=== PATIENT | female | born 1960 | race Caucasian/White ===

== ENCOUNTER 2019-07-15 17:30 | Emergency (ER) | payer OTHER, SELFPAY ==
[2019-07-15 18:05] VITALS: BP 159/85; PULSE 101; RESP 20; TEMP 36.6; O2SAT 93
--- NOTE | 2019-07-15 18:17 | ED.GENADULT ---
HPI - General Adult General Chief complaint: Allergic Reaction Stated complaint: possible shingles Source: patient and family Mode of arrival: ambulatory Limitations: no limitations History of Present Illness HPI narrative: Patient presents with a burning sensation to her left lateral scalp area with some some redness with no vesicles, it is a burning sensation that she has had that started this morning has a history of shingles. Currently there is no fever chills no visible rash, no chest pain no shortness of breath no nausea vomiting no headaches no blurry vision and no head injuries. Onset (ago): hour(s) Location: head Radiation: non-radiation Severity: mild Quality: burning Pain Consistency: constant Relieving factors: none Exacerbating factors: none Associated symptoms: denies other symptoms Related Data Home Medications Medication Instructions Recorded Confirmed bupropion HCl 150 mg 24 hr tablet, 150 mg PO QAM 03/25/19 07/15/19 extended release fluticasone propionate 50 1 spray NASAL DAILY 03/25/19 07/15/19 mcg/actuation nasal spray,suspension montelukast 10 mg tablet 10 mg PO DAILY 03/25/19 07/15/19 Allergies Allergy/AdvReac Type Severity Reaction Status Date / Time No Known Allergies Allergy Verified 06/29/19 13:51 Review of Systems Review of Systems: All systems reviewed & are unremarkable except as noted in HPI and below PMFSH Past Medical History Medical History Asthma COPD (chronic obstructive pulmonary disease) DIAMOND (generalized anxiety disorder) GERD (gastroesophageal reflux disease) Hyperlipidemia Tobacco dependence Family History Family History Mother Family history of type 2 diabetes mellitus Social History Social History Smoking packs per day: 1 Smoking cigarettes per day: 20.0 Smoking status: Current every day smoker Exam Const: General: no acute distress and alert Orientation/consciousness: patient oriented x3 HENMT: Head: normal to inspection Eyes: Conjunctivae: conjunctivae normal Pupils: Equal, round and reactive pupils present Neck: Neck: normal visual inspection Chest: Chest palpation & inspection: normal inspection of the chest Resp: Effort & Inspection: normal respiratory effort Auscultation: clear to auscultation bilaterally Cardio: Rate: regular rate Rhythm: regular rhythm GI: GI Palp: Yes Soft to palpation Percussion: Yes normal to percussion : General: Yes no CVA tenderness Back/Spine/Pelvis: Back: no CVA tenderness Skin: General skin exam: normal color Rashes: no rashes Neuro: General: patient oriented x3, moves all extremities, no meningeal signs and no focal motor deficits Extrem: General: normal to inspection Psych: Mental Status: mental status grossly normal Course Vital Signs Vital signs: Vital Signs Temperature 36.6 C 07/15/19 18:05 Pulse Rate 101 H 07/15/19 18:05 Respiratory Rate 20 07/15/19 18:05 Blood Pressure 159/85 H 07/15/19 18:05 Pulse Oximetry 93 07/15/19 18:05 Temperature 36.6 C 07/15/19 18:05 Pulse Rate 101 H 07/15/19 18:05 Respiratory Rate 20 07/15/19 18:05 Blood Pressure 159/85 H 07/15/19 18:05 Pulse Oximetry 93 07/15/19 18:05 Medical Decision Making Vital Signs Vital Signs: Vital Signs Temperature 36.6 C 07/15/19 18:05 Pulse Rate 101 H 07/15/19 18:05 Respiratory Rate 20 07/15/19 18:05 Blood Pressure 159/85 H 07/15/19 18:05 Pulse Oximetry 93 07/15/19 18:05 Temperature 36.6 C 07/15/19 18:05 Pulse Rate 101 H 07/15/19 18:05 Respiratory Rate 20 07/15/19 18:05 Blood Pressure 159/85 H 07/15/19 18:05 Pulse Oximetry 93 07/15/19 18:05 Critical Care Time Critical Care Time Critical Care Time: No Discharge Plan Discharge Clinical Impression: Rash and nonsp
[2019-07-15 18:24] VITALS: RESP 18
== END 2019-07-15 18:27 | disposition home or self-care (01) ==
PROVIDERS: Emergency Provider Emergency Medicine; PCP Nurse Practitioner Family
DX: R21 Rash and other nonspecific skin eruption (principal)
CPT/HCPCS: 99283

== ENCOUNTER 2020-05-17 10:49 | Outpatient (CLI) | payer OTHER, SELFPAY ==
--- NOTE | ~2020-05-17 | MM_ITS ---
EXAMINATION: MM screening vel BI w taylor HISTORY: Screening mammogram TECHNIQUE: Craniocaudal and mediolateral oblique 3-D tomosynthesis images were obtained and synthetic 2-D images were generated. CAD analysis was submitted and interpreted. COMPARISON: 10/05/2018 bilateral digital screening mammogram 12/23/2016 bilateral diagnostic digital mammogram and left breast ultrasound 12/20/2015 bilateral digital screening mammogram BREAST PARENCHYMAL COMPOSITION: There are scattered areas of fibroglandular density. FINDINGS: There is no evidence of suspicious mass, calcification, or architectural distortion to sugg est malignancy in either breast. There has been no suspicious interval change. IMPRESSION: 1. No mammographic evidence of malignancy. 2. Recommend routine screening mammography in one year. BI-RADS Category 1: Negative Reviewed, dictated and finalized at location A. [employer]
[2020-05-17 12:40] LABS: Alanine Aminotransferase 28 U/L (14-59); Albumin Level 3.7 g/dL (3.4-5.0); Alkaline Phosphatase 76 U/L (46-116); Anion Gap 9 mmol/L (8-16); Aspartate Amino Transferase 30 U/L (15-37); Bilirubin,Total 0.4 mg/dL (0.00-1.00); Blood Urea Nitrogen 14 mg/dL (7-18); Carbon Dioxide 29 mmol/L (21-32); Chloride 102 mmol/L (98-108); Cholesterol 218 mg/dL (0-200); Estimated Glomerular Filt Rate > 60; Glucose 89 mg/dL (70-99); HDL Direct 42 mg/dL (40-60); LDL Cholesterol Calculated 104 mg/dL (<130); Osmolality Calculated 289 mOsm/kg (285-295); Potassium 4.4 mmol/L (3.5-5.1); Sodium 140 mmol/L (136-145); Triglycerides 360 mg/dL (0-150)
== END 2020-05-17 10:50 | disposition home or self-care (01) ==
LOC: CHSIMG 10:52
PROVIDERS: PCP Nurse Practitioner Family; Visit Provider Nurse Practitioner Family
DX: Z00.00 Encounter for general adult medical examination without abnormal findings (principal); E78.5 Hyperlipidemia, unspecified; Z12.31 Encounter for screening mammogram for malignant neoplasm of breast
CPT/HCPCS: 36415; 77063; 77067; 80053; 80061

== ENCOUNTER 2020-07-03 14:48 | Outpatient (CLI) | payer OTHER, SELFPAY | END 2020-07-03 14:49 | disposition home or self-care (01) | LOC: CHSIMG 14:50 | PROVIDERS: PCP Nurse Practitioner Family; Visit Provider Nurse Practitioner Family | DX: M79.662 Pain in left lower leg (principal) | CPT/HCPCS: 99199 ==

== ENCOUNTER 2020-07-04 08:44 | Outpatient (CLI) | payer OTHER, SELFPAY ==
--- NOTE | ~2020-07-04 | US_ITS ---
EXAMINATION: US venous doppler [facility] EXAM DATE: 07/04/2020 09:08 INDICATION: Pain in left lower leg . TECHNIQUE: Multiple grayscale, color flow and Doppler images of the left lower extremity deep venous system were obtained and reviewed. There is no prior study for comparison. FINDINGS: The left common femoral, femoral and profunda veins demonstrate normal color flow, respirat ory variation, augmentation and compressibility. Compressibility, color flow confirmed within the le ft popliteal, posterior tibial, peroneal, and greater saphenous veins. IMPRESSION: No left lower extremity deep venous thrombosis. Reviewed, dictated and finalized at location A.
== END 2020-07-04 08:45 | disposition home or self-care (01) ==
LOC: CHSIMG 08:45
PROVIDERS: PCP Nurse Practitioner Family; Visit Provider Nurse Practitioner Family
DX: M79.662 Pain in left lower leg (principal)
CPT/HCPCS: 93971

== ENCOUNTER 2020-08-29 20:22 | Emergency (ER) | payer OTHER, SELFPAY ==
--- NOTE | ~2020-08-29 | XR_ITS ---
EXAMINATION: XR chest 2V DATE: 08/29/2020 21:47 INDICATION: Shortness of breath. Wheezing. Cough. TECHNIQUE: Frontal and lateral views of the chest were obtained. COMPARISON: Chest 2 views 04/12/2016 FINDINGS: There is mild scarring at the lung apices. No pleural effusion or pneumothorax. The heart s ize is normal. IMPRESSION: 1. Stable mild scarring at the lung apices. Reviewed, dictated and finalized at location A.
[2020-08-29 20:30] VITALS: BP 145/88; PULSE 109; RESP 22; TEMP 36.8; O2SAT 93
[2020-08-29 20:45] VITALS: PULSE 98; RESP 20; O2SAT 95
[2020-08-29] MEDS: IPRATROPIUM 0.5 MG/ALBUTEROL SULFATE 2.5 MG AMPUL.NEB 3 ML INHALATION (20:49)
[2020-08-29 20:53] VITALS: PULSE 92; RESP 20; O2SAT 98
[2020-08-29] MEDS: methylPREDNISolone SOD SUCC 125 MG VIAL IV PUSH (20:54)
[2020-08-29 21:09] LABS: Basophils Absolute Auto 0.09 K/mm3 (0.00-0.10); Basophils Percent Auto 0.8 % (0.0-1.0); Eosinophils Absolute Auto 0.29 K/mm3 (0.02-0.50); Eosinophils Percent Auto 2.7 % (1.0-6.0); Hematocrit 41.3 % (35.0-49.0); Hemoglobin 13.6 g/dL (12.0-15.0); Immature Granulocyte Absolute 0.11 K/mm3 (0.00-0.00); Lymphocytes Absolute Auto 3.51 K/mm3 (1.10-4.50); Lymphocytes Percent Auto 32.7 % (18.0-42.0); Mean Corpuscular HGB Conc 32.9 g/dL (32.0-36.0); Mean Corpuscular Hemoglobin 30.4 pg (27.0-31.0); Mean Corpuscular Volume 92.4 fL (78.0-102.0); Mean Platelet Volume 10.8 fl (9.2-11.8); Monocytes Absolute Auto 0.98 K/mm3 (0.10-0.90); Monocytes Percent Auto 9.1 % (2.0-11.0); Neutrophils Absolute Auto 5.8 K/mm3 (1.7-7.2); Neutrophils Percent Auto 53.7 % (50.0-70.0); Platelet Count Result 200 K/mm3 (150-420); Red Blood Count 4.47 M/mm3 (4.20-5.40); Red Cell Distribution Width 13.2 % (11.6-14.4); White Blood Count 10.7 K/mm3 (4.8-10.8)
[2020-08-29 21:26] LABS: Alanine Aminotransferase 21 U/L (14-59); Anion Gap 10 mmol/L (8-16); Aspartate Amino Transferase 12 U/L (15-37); Bilirubin,Total 0.3 mg/dL (0.00-1.00); Blood Urea Nitrogen 16 mg/dL (7-18); Calcium 8.4 mg/dL (8.5-10.1); Carbon Dioxide 28 mmol/L (21-32); Chloride 102 mmol/L (98-108); Estimated CRCL calculation 48 ml/min; Estimated Glomerular Filt Rate 60; Glucose 132 mg/dL (70-99); Osmolality Calculated 293 mOsm/kg (285-295); Potassium 3.9 mmol/L (3.5-5.1); Sodium 140 mmol/L (136-145)
[2020-08-29 21:27] LABS: Albumin Level 3.3 g/dL (3.4-5.0); Alkaline Phosphatase 69 U/L (46-116); Total Protein 6.7 g/dL (6.4-8.2)
[2020-08-29 21:28] LABS: SARS-CoV-2 Ag Negative (Negative)
--- NOTE | 2020-08-29 21:38 | ED.URI ---
HPI - URI/Sore Throat General Chief Complaint: Upper Respiratory Infection Stated Complaint: congestion Source: patient Mode of arrival: ambulatory Limitations: no limitations History of Present Illness HPI Narrative: this is a 60-year-old female with herself history of allergic rhinitis presents with some shortness of breath with cough with left lower rib pain with some no fever chills no nausea vomiting no chest pain the patient uses albuterol as needed with history of wheezing secondary to allergic sinusitis. And with a history of COPD/asthma. MD elicited complaint: cough and nasal congestion Onset (ago): day(s) Consistency: intermittent Severity: mild Description of mucous: yellow Exacerbating factors: deep breaths Associated symptoms: nasal congestion and shortness of breath Related Data Home Medications Medication Instructions Recorded Confirmed bupropion HCl 150 mg 24 hr tablet, 150 mg PO QAM 03/25/19 08/29/20 extended release Allergies Allergy/AdvReac Type Severity Reaction Status Date / Time No Known Allergies Allergy Verified 07/03/20 14:34 Review of Systems Review of Systems: All systems reviewed & are unremarkable except as noted in HPI and below PMFSH Past Medical History Medical History (Updated 08/29/20 @ 21:54 by Ross Alexis MD) Asthma COPD (chronic obstructive pulmonary disease) DIAMOND (generalized anxiety disorder) GERD (gastroesophageal reflux disease) Hyperlipidemia Overweight Tobacco dependence Upper respiratory infection Family History Family History Mother Family history of type 2 diabetes mellitus Social History Social History Smoking packs per day: 1 Smoking cigarettes per day: 20.0 Smoking status: Never smoker Tobacco type: cigarettes Alcohol intake: never Substance use: never Substance use type: does not use Exam Const: General: no acute distress and alert Orientation/consciousness: patient oriented x3 HENMT: Head: normal to inspection Eyes: Conjunctivae: conjunctivae normal Pupils: Equal, round and reactive pupils present EOM: EOMs intact bilaterally Direct Ophthalmoscopy: no photophobia Neck: Neck: normal visual inspection, no lymphadenopathy and no meningeal signs Chest: Chest palpation & inspection: normal inspection of the chest Resp: Effort & Inspection: normal respiratory effort Auscultation: wheezes Cardio: Rate: regular rate Rhythm: regular rhythm GI: GI Palp: Yes Soft to palpation Percussion: Yes normal to percussion : General: Yes no CVA tenderness Back/Spine/Pelvis: Back: no CVA tenderness Skin: General skin exam: normal color Rashes: no rashes Neuro: General: patient oriented x3 Extrem: General: normal to inspection Psych: Mental Status: mental status grossly normal Affect: normal affect Attitude: cooperative Course Course Emergency Course: Reassessment of patient improved with some DuoNebs and IV steroids x-ray labs were reviewed with patient. Vital Signs Vital signs: Vital Signs Temperature 36.8 C 08/29/20 20:30 Pulse Rate 109 H 08/29/20 20:30 Respiratory Rate 22 H 08/29/20 20:30 Blood Pressure 145/88 H 08/29/20 20:30 Pulse Oximetry 93 08/29/20 20:30 Temperature 36.8 C 08/29/20 20:30 Pulse Rate 92 08/29/20 20:53 Respiratory Rate 20 08/29/20 20:53 Blood Pressure 145/88 H 08/29/20 20:30 Pulse Oximetry 98 08/29/20 20:53 MDM - URI/Sore Throat Lab Data Result diagrams: 08/29/20 21:02 08/29/20 21:02 Labs: Lab Results 08/29/20 08/29/20 08/29/20 Range/Units 21:02 21:02 21:02 WBC 10.7 (4.8-10.8) K/mm3 RBC 4.47 (4.20-5.40) M/mm3 Hgb 13.6 (12.0-15.0) g/dL Hct 41.3 (35.0-49.0) % MCV 92.4 (78.0-102.0) fL MCH 30.4 (27.0-31.0) pg MCHC 32.9 (32.0-36.0) g/dL RDW 13.2 (11.6-14.4) %
[2020-08-29 21:53] VITALS: BP 118/71; PULSE 104; RESP 20; TEMP 36.8; O2SAT 97
[2020-08-29] MEDS: BENZONATATE 100 MG CAPSULE 200 MG PO (22:03)
[2020-08-29] MEDS: AZITHROMYCIN 250 MG TABLET 500 MG PO (22:03)
== END 2020-08-29 22:04 | disposition home or self-care (01) ==
PROVIDERS: Emergency Provider Emergency Medicine; PCP Nurse Practitioner Family
DX: J06.9 Acute upper respiratory infection, unspecified (principal); Z20.822 Contact with and (suspected) exposure to COVID-19
CPT/HCPCS: 36415; 71046; 80053; 85025; 87426; 94640; 96374; 99283; 99284; A9270; C9803; J2930

== ENCOUNTER 2021-05-15 18:13 | Emergency (ER) | payer OTHER, SELFPAY ==
[2021-05-15 18:13] VITALS: BP 166/106; PULSE 125; RESP 24; TEMP 37.1; O2SAT 89
[2021-05-15 18:20] VITALS: O2SAT 89
[2021-05-15] MEDS: methylPREDNISolone SOD SUCC 125 MG VIAL IV PUSH (18:23)
--- NOTE | 2021-05-15 18:41 | ED.ALLEREA ---
HPI - Allergic Reaction General Chief complaint: Allergic Reaction Stated complaint: allergic reaction Time Seen by Provider: 05/15/21 18:15 Source: patient and RN notes reviewed Mode of arrival: ambulatory Limitations: no limitations History of Present Illness complaint: allergic reaction Onset (ago): hour(s) (3) Exposure: unknown Symptoms: rash and itching Severity: mild Treatment prior to arrival: benadryl Related Data Allergies Allergy/AdvReac Type Severity Reaction Status Date / Time No Known Allergies Allergy Verified 05/24/21 14:25 Review of Systems Review of Systems: All systems reviewed & are unremarkable except as noted in HPI and below PMFSH Past Medical History Medical History (Updated 06/19/21 @ 08:08 by Enrique Anne MD) Allergic reaction Asthma COPD (chronic obstructive pulmonary disease) DIAMOND (generalized anxiety disorder) GERD (gastroesophageal reflux disease) Hyperlipidemia Overweight Tobacco dependence Upper respiratory infection Urticaria Family History Family History Mother Family history of type 2 diabetes mellitus Social History Social History Smoking packs per day: 0.5 Smoking cigarettes per day: 10.0 Years smoked: 30 Smoking pack-years: 15.00 Smoking status: Current every day smoker Tobacco type: cigarettes Alcohol intake: never Substance use: never Substance use type: does not use Exam Const: Nutritional Appearance: well nourished Orientation/consciousness: patient oriented x3 Limitations: no limitations HENMT: Head: normal to inspection Ears: external ears normal and EAC's normal General nose exam: Normal external nose present and Normal nares present Mouth: Yes lip normal and Yes moist mucous membranes Throat: posterior oropharynx normal Eyes: Conjunctivae: conjunctivae normal Pupils: Equal, round and reactive pupils present EOM: EOMs intact bilaterally Neck: Neck: normal visual inspection and no lymphadenopathy Chest: Chest palpation & inspection: normal inspection of the chest Resp: Effort & Inspection: normal respiratory effort Auscultation: clear to auscultation bilaterally Cardio: Rate: regular rate Rhythm: regular rhythm GI: GI Palp: Yes Soft to palpation and No Tenderness to palpation present (GI) Auscultation: normal bowel sounds : General: Yes bladder normal to palpation and Yes no CVA tenderness Back/Spine/Pelvis: Back: no CVA tenderness Skin: Other: mild generalized urticariae. no acute wheezing, tongue swelling or stridor. Neuro: General: patient oriented x3, moves all extremities, no meningeal signs, no focal motor deficits and CN's II-XI intact bilaterally Extrem: General: normal to inspection and no pedal edema Psych: Appearance: grossly normal and well kempt Affect: normal affect Attitude: cooperative Thought content: Yes Normal thought content present Course Course Emergency Course: Pt was stable in the ED. resolving urticariae. Reevaluation(s) Date: 05/15/21 Time: 18:33 Vital Signs Vital signs: Vital Signs Temperature 37.1 C 05/15/21 18:13 Pulse Rate 125 H 05/15/21 18:13 Respiratory Rate 24 H 05/15/21 18:13 Blood Pressure 166/106 H 05/15/21 18:13 Pulse Oximetry 89 L 05/15/21 18:13 Temperature 36.9 C 05/15/21 19:13 Pulse Rate 90 05/15/21 19:13 Respiratory Rate 20 05/15/21 19:13 Blood Pressure 125/65 05/15/21 19:13 Pulse Oximetry 100 05/15/21 19:13 MDM - Allergic Reaction Differential Diagnosis Differential diagnosis: Likely allergic reaction, angioedema, adverse reaction to drug and urticaria Medical Records Attestation: I reviewed the patient's medical records. Critical Care Time Critical Care Time Critical Care Time: No Total Critical Care Time: 0 Discharge Plan Discharge Clinical Impression: Urticaria Allergic reaction Qualifi
[2021-05-15] MEDS: diphenhydrAMINE HCl INJ 50 MG/ML VIAL IM (18:48)
[2021-05-15 18:49] VITALS: O2SAT 94
[2021-05-15] MEDS: SODIUM CHLORIDE 0.9% IV 500 ML 999 ML IV CONT (18:55)
[2021-05-15 19:13] VITALS: BP 125/65; PULSE 90; RESP 20; TEMP 36.9; O2SAT 100
== END 2021-05-15 19:26 | disposition home or self-care (01) ==
PROVIDERS: Emergency Provider Emergency Medicine; PCP Nurse Practitioner Family
DX: L50.9 Urticaria, unspecified (principal); T78.40XA Allergy, unspecified, initial encounter
CPT/HCPCS: 96372; 96374; 99284; J1200; J2930; J7040

== ENCOUNTER 2021-07-29 11:18 | Emergency (ER) | payer OTHER, SELFPAY ==
[2021-07-29 11:25] VITALS: BP 142/87; PULSE 96; RESP 20; TEMP 36.1; O2SAT 95
--- NOTE | 2021-07-29 11:37 | ED.ABDPAIN ---
HPI - Abdominal Pain General Chief Complaint: Urogenital-Female Stated Complaint: frequency, urgency and burning with urination Time Seen by Provider: 07/29/21 11:37 History of Present Illness HPI narrative: 61-year-old female patient is here with complaints of increased urinary frequency and burning and suprapubic pain for the last 3-4 days. Patient states that about a week to 2 ago she had a urinary tract infection and was seen by her primary care provider and started on Macrobid for 1 week. She reports no associated nausea or vomiting and/or any fever or chills. She reports no back pain or flank pain. Patient states that she gets a urinary tract infection at least once every year. Patient also has had cough which is chronic and she is a smoker. Denies any recent COVID exposure. Is vaccinated. Related Data Allergies Allergy/AdvReac Type Severity Reaction Status Date / Time No Known Allergies Allergy Verified 07/29/21 11:32 Review of Systems Review of Systems: All systems reviewed & are unremarkable except as noted in HPI and below Constitutional: Constitutional: Reports no additional constitutional complaints, Denies chills and Denies fever(s) Eyes: Eyes: Reports no additional eye complaints ENT: Reports system reviewed and no additional complaints, except as documented Cardiovascular: Cardiovascular: Reports no additional cardiovascular complaints Respiratory: Respiratory: Reports cough (has chronic cough but worse in the last few days ) and Reports dyspnea (chronic) Genitourinary: Genitourinary: Reports as per HPI, Denies hematuria, Reports nocturia, Reports dysuria, Denies flank pain, Denies urinary incontinence and Denies vaginal discharge Musculoskeletal: Musculoskeletal: Reports no additional musculoskeletal complaints Integumentary/Breasts: Skin/Breast: Reports system reviewed and no additional complaints, except as docu Neurologic: Reports system reviewed and no additional complaints, except as documented Psychiatric: Psychiatric: Reports no additional psychiatric complaints Endocrine: Endocrine: Reports no additional endocrine complaints Hematologic/Lymphatic: Hematologic/Lymphatic: Reports no additional hematologic/lymphatic complaints Allergic/Immunologic: Allergic/Immunologic: Reports no additional allergic/immunologic complaints PMFSH Past Medical History Medical History Allergic reaction Asthma COPD (chronic obstructive pulmonary disease) DIAMOND (generalized anxiety disorder) GERD (gastroesophageal reflux disease) Hyperlipidemia Overweight Tobacco dependence Upper respiratory infection Urticaria Family History Family History Mother Family history of type 2 diabetes mellitus Social History Social History Smoking packs per day: 0.5 Smoking cigarettes per day: 10.0 Years smoked: 30 Smoking pack-years: 15.00 Smoking status: Current every day smoker Tobacco type: cigarettes Alcohol intake: never Substance use: never Substance use type: does not use Exam Narrative: Alert female in no acute distress Stable vital signs. Afebrile. Blood pressure in triage is 142/87. HEENT is acutely unremarkable Breath sounds are audible bilaterally and scattered rhonchi are heard as well. Heart tones are regular. Abdomen is soft and obese. There is minimal suprapubic tenderness. No guarding or rebound or rigidity. Pelvic exam has been deferred at this time. Extremities are atraumatic. Skin is warm and dry and turgor is normal. Neurologic exam is normal. Mood and affect are normal. Course Course Emergency Course: Urinalysis is positive for significant pyuria of 51-60 white blood cells per high-power field and 1+ bacteria. A urine culture has been ordered. The patient will be started on Augmentin in the [place]
[2021-07-29 11:54] LABS: Appearance Urine Clear (Clear); Bilirubin Urine Negative (Negative); Color Urine Light Yellow (Yellow); Glucose Urine UA Negative (Negative); Ketones Urine Negative (Negative); Leukocyte Esterase Ur 3+ (Negative); Nitrate Urine Negative (Negative); Protein Urine Negative (Negative); Urobilinogen Urine 0.2 mg/dL (0.2-1.0)
[2021-07-29 11:56] LABS: Add Urine Microscopic? YES; Bacteria Urine 1+ /hpf; Blood Urine Trace-lysed (Negative); Squamous Epithelial Cell Urine None seen /hpf (Few); WBC Urine 51-75 /hpf (0-3)
[2021-07-29] MEDS: PHENAZOPYRIDINE HCL 100 MG TABLET 200 MG PO (12:03)
[2021-07-29 12:25] VITALS: BP 130/78; PULSE 84; RESP 20; TEMP 36.8; O2SAT 94
== END 2021-07-29 12:27 | disposition home or self-care (01) ==
PROVIDERS: Emergency Provider Emergency Medicine; PCP Nurse Practitioner Family
DX: N39.0 Urinary tract infection, site not specified (principal); J44.9 Chronic obstructive pulmonary disease, unspecified; K21.9 Gastro-esophageal reflux disease without esophagitis; F41.1 Generalized anxiety disorder; E78.5 Hyperlipidemia, unspecified; F17.210 Nicotine dependence, cigarettes, uncomplicated
CPT/HCPCS: 81001; 87077; 87086; 87088; 87186; 99283; A9270

== ENCOUNTER 2021-08-01 11:21 | Outpatient (CLI) | payer OTHER, SELFPAY ==
[2021-08-01 11:45] LABS: Basophils Percent Auto 1.1 % (0.0-1.0); Eosinophils Percent Auto 4.5 % (1.0-6.0); Hematocrit 49.2 % (35.0-49.0); Hemoglobin 15.7 g/dL (12.0-15.0); Immature Granulocyte Absolute 0.15 K/mm3 (0.00-0.00); Immature Granulocyte Percent A 1.7 % (0.0-0.0); Lymphocytes Absolute Auto 2.93 K/mm3 (1.10-4.50); Lymphocytes Percent Auto 32.8 % (18.0-42.0); Mean Corpuscular HGB Conc 31.9 g/dL (32.0-36.0); Mean Corpuscular Hemoglobin 29.9 pg (27.0-31.0); Mean Corpuscular Volume 93.7 fL (78.0-102.0); Mean Platelet Volume 10.3 fl (9.2-11.8); Monocytes Absolute Auto 0.88 K/mm3 (0.10-0.90); Monocytes Percent Auto 9.9 % (2.0-11.0); Neutrophils Absolute Auto 4.5 K/mm3 (1.7-7.2); Platelet Count Result 230 K/mm3 (150-420); Red Blood Count 5.25 M/mm3 (4.20-5.40); Red Cell Distribution Width 12.6 % (11.6-14.4); White Blood Count 8.9 K/mm3 (4.8-10.8)
[2021-08-01 11:57] LABS: Add Urine Microscopic? NO; Appearance Urine Clear (Clear); Bilirubin Urine Negative (Negative); Blood Urine Negative (Negative); Color Urine Light Yellow (Yellow); Glucose Urine UA Negative (Negative); Ketones Urine Negative (Negative); Leukocyte Esterase Ur Negative (Negative); Nitrate Urine Negative (Negative); Protein Urine Negative (Negative); Specific Grav Ur <= 1.005 (1.010-1.020); Urobilinogen Urine 0.2 mg/dL (0.2-1.0)
[2021-08-01 12:23] LABS: Alanine Aminotransferase 27 U/L (14-59); Albumin Level 3.8 g/dL (3.4-5.0); Alkaline Phosphatase 70 U/L (46-116); Anion Gap 5 mmol/L (8-16); Aspartate Amino Transferase 20 U/L (15-37); Bilirubin,Total 0.4 mg/dL (0.00-1.00); Blood Urea Nitrogen 13 mg/dL (7-18); Calcium 9.4 mg/dL (8.5-10.1); Carbon Dioxide 33 mmol/L (21-32); Chloride 101 mmol/L (98-108); Cholesterol 255 mg/dL (0-200); Estimated Glomerular Filt Rate > 60; Glucose 87 mg/dL (70-99); HDL Direct 43 mg/dL (40-60); LDL Cholesterol Calculated 156 mg/dL (<130); Osmolality Calculated 287 mOsm/kg (285-295); Potassium 4.5 mmol/L (3.5-5.1); Sodium 139 mmol/L (136-145); Total Protein 7.3 g/dL (6.4-8.2); Triglycerides 280 mg/dL (0-150)
== END 2021-08-01 11:22 | disposition home or self-care (01) ==
LOC: CHSLAB 11:23
PROVIDERS: PCP Nurse Practitioner Family; Visit Provider Nurse Practitioner Family
DX: E78.5 Hyperlipidemia, unspecified (principal); R30.0 Dysuria
CPT/HCPCS: 36415; 80053; 80061; 81003; 85025

== ENCOUNTER 2021-10-24 16:36 | Emergency (ER) | payer OTHER, SELFPAY ==
[2021-10-24 16:40] VITALS: BP 154/84; PULSE 92; RESP 16; TEMP 36.2; O2SAT 95
[2021-10-24] MEDS: ACETAMINOPHEN 325 MG TABLET 650 MG PO (17:56)
[2021-10-24] MEDS: FLUORESCEIN SOD 1 MG/STRIP LEFT EYE (18:26)
[2021-10-24] MEDS: ERYTHROMYCIN OPHTH OINTMENT 3.5 GM TUBE 1 APPLIC LEFT EYE (18:26)
[2021-10-24] MEDS: TETRACAINE HCL 0.5% OPHTH SOLN 4 ML BTL 1 DROP LEFT EYE (18:27)
--- NOTE | 2021-10-24 18:28 | ED.EYEPROB ---
HPI - Eye Problem General Chief complaint: Eye Problems Stated complaint: left eye issue Time Seen by Provider: 10/24/21 16:40 Source: patient and RN notes reviewed Mode of arrival: ambulatory Limitations: no limitations History of Present Illness chief complaint: eye redness (painless bleeding around the white of the eye. vision was normal. no trauma.) Onset (ago): hour(s) (6) Onset description: gradual Duration: constant Location: left eye Eye Symptoms: redness and foreign body sensation Place: home Mechanism: none Severity: mild Severity scale (1-10): 2 If Pain, Quality: aching Associated symptoms: none Treatments Prior to Arrival: none Related Data Allergies Allergy/AdvReac Type Severity Reaction Status Date / Time No Known Allergies Allergy Verified 10/24/21 17:15 Review of Systems Review of Systems: All systems reviewed & are unremarkable except as noted in HPI and below Constitutional: Constitutional: Reports no additional constitutional complaints Eyes: Eyes: Reports no additional eye complaints Comments: left eye scleral redness ENT: Reports system reviewed and no additional complaints, except as documented Cardiovascular: Cardiovascular: Reports no additional cardiovascular complaints Respiratory: Respiratory: Reports no additional respiratory complaints Gastrointestinal: Gastrointestinal: Reports no additional gastrointestinal complaints Genitourinary: Genitourinary: Reports no additional female genitourinary complaints Musculoskeletal: Musculoskeletal: Reports no additional musculoskeletal complaints Integumentary/Breasts: Skin/Breast: Reports system reviewed and no additional complaints, except as docu Neurologic: Reports system reviewed and no additional complaints, except as documented Psychiatric: Psychiatric: Reports no additional psychiatric complaints Endocrine: Endocrine: Reports no additional endocrine complaints Hematologic/Lymphatic: Hematologic/Lymphatic: Reports no additional hematologic/lymphatic complaints Allergic/Immunologic: Allergic/Immunologic: Reports no additional allergic/immunologic complaints [facility] Past Medical History Medical History Allergic reaction Asthma COPD (chronic obstructive pulmonary disease) DIAMOND (generalized anxiety disorder) GERD (gastroesophageal reflux disease) Hyperlipidemia Overweight KELSIE (subconjunctival hemorrhage) Tobacco dependence Upper respiratory infection Urticaria Family History Family History Mother Family history of type 2 diabetes mellitus Social History Social History Smoking packs per day: 0.5 Smoking cigarettes per day: 10.0 Years smoked: 30 Smoking pack-years: 15.00 Smoking status: Current every day smoker Tobacco type: cigarettes Alcohol intake: never Substance use: never Substance use type: does not use Exam Const: General: healthy appearing and no acute distress Nutritional Appearance: well nourished Orientation/consciousness: patient oriented x3 Limitations: no limitations HENMT: Head: normal to inspection Ears: external ears normal, TM's normal bilaterally and EAC's normal General nose exam: Normal external nose present and Normal nares present Face and sinus: normal facial exam and sinuses nontender Mouth: Yes Normal oral and palatal mucosa present and Yes moist mucous membranes Teeth and gingiva: dentition normal Throat: posterior oropharynx normal Eyes: Conjunctivae: conjunctivae normal and conjunctival abnormality (mild hemorrhage) left Pupils: Equal, round and reactive pupils present EOM: EOMs intact bilaterally Neck: Neck: normal visual inspection, no lymphadenopathy and no meningeal signs Chest: Chest palpation & inspection: normal inspection of the chest Resp: Effort & Inspection: normal respiratory effor
[2021-10-24 18:39] VITALS: BP 143/85; PULSE 74; RESP 16; O2SAT 95
== END 2021-10-24 18:35 | disposition home or self-care (01) ==
PROVIDERS: Emergency Provider Emergency Medicine; PCP Nurse Practitioner Family
DX: H11.32 Conjunctival hemorrhage, left eye (principal)
CPT/HCPCS: 99283; A9270

== ENCOUNTER 2021-12-12 12:13 | Outpatient (CLI) | payer OTHER, SELFPAY ==
[2021-12-12 12:28] LABS: Hematocrit 44.3 % (35.0-49.0); Hemoglobin 14.3 g/dL (12.0-15.0); Mean Corpuscular HGB Conc 32.3 g/dL (32.0-36.0); Mean Corpuscular Hemoglobin 29.5 pg (27.0-31.0); Mean Corpuscular Volume 91.5 fL (78.0-102.0); Mean Platelet Volume 10.6 fl (9.2-11.8); Platelet Count Result 196 K/mm3 (150-420); Red Blood Count 4.84 M/mm3 (4.20-5.40); Red Cell Distribution Width 12.4 % (11.6-14.4); White Blood Count 7.9 K/mm3 (4.8-10.8)
[2021-12-12 13:11] LABS: Anion Gap 9 mmol/L (8-16); Bilirubin,Total 0.3 mg/dL (0.00-1.00); Blood Urea Nitrogen 15 mg/dL (7-18); Calcium 9.2 mg/dL (8.5-10.1); Carbon Dioxide 28 mmol/L (21-32); Chloride 104 mmol/L (98-108); Estimated Glomerular Filt Rate > 60; Glucose 102 mg/dL (70-99); Osmolality Calculated 292 mOsm/kg (285-295); Sodium 141 mmol/L (136-145); Thyroid Stimulating Hormone Reflex 1.41 u/IU/mL (0.36-3.74)
[2021-12-12 13:12] LABS: Alanine Aminotransferase 24 U/L (14-59); Albumin Level 3.8 g/dL (3.4-5.0); Alkaline Phosphatase 70 U/L (46-116); Aspartate Amino Transferase 17 U/L (15-37); CRP 1.4 mg/dL (0.0-0.9); Total Protein 7.1 g/dL (6.4-8.2)
[2021-12-12 13:55] LABS: Vitamin B12 530 pg/mL (193-986)
[2021-12-12 14:23] LABS: Erythrocyte Sedimentation Rate 14 mm/hr (0-20)
[2021-12-16 10:12] LABS: ANA Cascade Screen Negative (Negative)
== END 2021-12-12 12:14 | disposition home or self-care (01) ==
LOC: CHSLAB 12:15
PROVIDERS: PCP Family Medicine; Visit Provider Family Medicine
DX: I73.9 Peripheral vascular disease, unspecified (principal); E11.9 Type 2 diabetes mellitus without complications; E53.8 Deficiency of other specified B group vitamins
CPT/HCPCS: 36415; 80053; 82607; 82746; 84443; 85027; 85652; 86038; 86140

== ENCOUNTER 2021-12-19 13:43 | Outpatient (CLI) | payer OTHER, SELFPAY ==
--- NOTE | ~2021-12-19 | US_ITS ---
EXAMINATION: US arterial ankle brachial ind DATE: 12/19/2021 14:33 INDICATION: Peripheral vascular disease TECHNIQUE: Segmental pressures and plethysmographic and Doppler waveforms of the brachial and lower e xtremity arteries were obtained. COMPARISON: None. FINDINGS: Right and left brachial artery pressures of 107 mm Hg and 115 mm Hg, respectively, are concordant (no rmal difference <= 30 mmHg). The right ankle-brachial index (DARYA) is 1.30 (normal >= 0.9-1.0). The right great toe-brachial index (TBI) is 0.89 (normal >= 0.65). Arterial Doppler waveforms are triphasic with brisk systolic upstrok es throughout the arteries of the right lower limb. The left DARYA is 1.28. The left TBI is 0.82. Arterial Doppler waveforms are triphasic with brisk systo lic upstrokes throughout the arteries of the left lower limb. IMPRESSION: 1. No significant arterial occlusive disease to either lower limb with normal bilateral ABIs and TBIs Reviewed, dictated and finalized at location B. IMPRESSION: 1. No significant arterial occlusive disease to either lower limb with normal b ilateral ABIs and TBIs
== END 2021-12-19 13:44 | disposition home or self-care (01) ==
LOC: CHSIMG 13:44
PROVIDERS: PCP Family Medicine; Visit Provider Family Medicine
DX: I73.9 Peripheral vascular disease, unspecified (principal)
CPT/HCPCS: 93922

== ENCOUNTER 2022-02-01 18:10 | Emergency (ER) | payer OTHER, SELFPAY ==
--- NOTE | ~2022-02-01 | CT_ITS ---
EXAMINATION: CTA chest PE protocol DATE: 02/01/2022 20:32 INDICATION: Shortness of breath. Elevated d-dimer. TECHNIQUE: Computed tomography (CT) pulmonary angiogram of the chest was performed with 100 mL Omnipa que-350 intravenous contrast. Additional 3D reconstructions utilizing coronal maximum intensity proje ction (MIP) were performed. Automated exposure control and iterative reconstruction technique were em ployed. The dose-length product was 429.25 mGy-cm. COMPARISON: 05/01/2017 FINDINGS: Good suboptimal contrast opacification of the pulmonary arteries. There is mild streak artifact from dense contrast in the superior vena cava and right atrium. No significant respiratory motion artifact yielding diagnostic quality study which demonstrates no pulmonary embolism. Mild emphysema with seam stay stitcher phoebe bronchial wall thickening throughout both lungs.. There are scattered patchy groundglass opacitie s in the right upper and lower lobes single small region in the intersegment the left upper lobe. The re is also a small region of more dense consolidation at the anterobasilar segment of the right lower lobe. Findings are consistent with multifocal pneumonia. No pulmonary edema, pleural effusion or pne umothorax. Heart size is normal. No pericardial effusion. Thoracic aorta is normal in caliber with no dissection. Calcified right lower lobe nodule along with calcified right hilar and mediastinal lymph nodes and a few small splenic calcifications, all consistent with old granulomatous disease. No path ologically enlarged thoracic lymphadenopathy. Bones are unremarkable. IMPRESSION: 1. No pulmonary embolism. 2. Multifocal pneumonia in the right upper and lower lobes with single small focus in the left upper lobe. 3. Emphysema with chronic bronchitis. Reviewed, dictated and finalized at location A. TER ADVOCATE IMPRESSION: 1. No pulmonary embolism. 2. Multifocal pneumonia in the right upper and lower lobes with single small fo cus in the left upper lobe. 3. Emphysema with chronic bronchitis.
--- NOTE | ~2022-02-01 | XR_ITS ---
EXAMINATION: XR chest 2V DATE: 02/01/2022 19:12 INDICATION: COPD presenting with 5 days of congestion TECHNIQUE: frontal and lateral views of the chest were obtained. COMPARISON: Chest radiograph dated 08/29/2020 FINDINGS: Mild biapical pleural-parenchymal scarring. Again seen is chronic perihilar and infrahilar unchanged bronchial wall thickening. Mild airspace opacity right lower lung zone which could represent atelecta sis or pneumonia. No pleural effusion or pneumothorax. Heart size is normal with bilateral paracardia l fat pads. IMPRESSION: 1. New mild airspace opacities in the right lower lung zone which could represent atelectasis or pneu monia. 2. Unchanged bronchial wall thickening which could be due to chronic bronchitis or reactive airway di sease/asthma. Reviewed, dictated and finalized at location A. OGICAL INSPECTOR IMPRESSION: 1. New mild airspace opacities in the right lower lung zone which could represe nt atelectasis or pneumonia. 2. Unchanged bronchial wall thickening which could be due to chronic bronchitis or reactive airway disease/asthma.
--- NOTE | 2022-02-01 18:32 | ECG_ITS ---
Measurements Intervals [place] Rate: 127 P: 64 NM: 150 QRS: 73 QRSD: 76 T: 63 QT: 276 QTc: 403 Interpretive Statements SINUS TACHYCARDIA BASELINE ARTIFACT- I, II, III, AVR, AVL, AVF, V1-V6 ABNORMAL ECG NO PREVIOUS ECG AVAILABLE FOR COMPARISON Electronically Signed On 02-01-2022 22:31:25 HAND WASHER by Piyush Chavez D.O.
--- NOTE | 2022-02-01 18:34 | ED.SOB ---
HPI - SOB/Dyspnea General Chief Complaint: Shortness of Breath/Dyspnea Stated Complaint: sinus infection Time Seen by Provider: 02/01/22 18:32 History of Present Illness HPI Narrative: patient is 61-year-old white female complains of sinus drainage and shortness of breath. Patient has a history of COPD hyperlipidemia and complains of cough sneezing and shortness of breath after being exposed to 3 cats at her family member's house 1 week ago got worse 2 days later which was Friday 5 days ago and went to the urgent care and got doxycycline for that as well as earache. Her ear aches improved but she still coughing up gutierrez sputum has been short of breath the last 3 days she said tonight she ran out of her albuterol nebulizer treatment she still has meter dose inhaler of albuterol. Denies any chest pain nausea vomiting diarrhea constipation blood in her stool or bleeding or bruising. She has had a rash on her hands it itches. She has a history of eczema. Past medical history: As above denies any history of heart kidney liver intestinal diseases cancer thyroid diabetes or hypertension. Past surgical history: None Related Data Allergies Allergy/AdvReac Type Severity Reaction Status Date / Time No Known Allergies Allergy Verified 12/24/21 13:33 Review of Systems Review of Systems: All systems reviewed & are unremarkable except as noted in HPI and below Constitutional: Constitutional: Reports no additional constitutional complaints Eyes: Eyes: Reports no additional eye complaints ENT: Reports system reviewed and no additional complaints, except as documented Cardiovascular: Cardiovascular: Reports no additional cardiovascular complaints and Denies chest pain Respiratory: Respiratory: Reports as per HPI, Reports no additional respiratory complaints, Reports chest congestion, Reports cough, Reports dyspnea and Reports wheezing Gastrointestinal: Gastrointestinal: Reports as per HPI and Reports no additional gastrointestinal complaints Genitourinary: Genitourinary: Reports no additional female genitourinary complaints Musculoskeletal: Musculoskeletal: Reports no additional musculoskeletal complaints Integumentary/Breasts: Skin/Breast: Reports system reviewed and no additional complaints, except as docu, Reports as per HPI, Reports pruritus and Reports rash Neurologic: Reports system reviewed and no additional complaints, except as documented Psychiatric: Psychiatric: Reports no additional psychiatric complaints PMFSH Past Medical History Medical History Allergic reaction Asthma COPD (chronic obstructive pulmonary disease) DIAMOND (generalized anxiety disorder) GERD (gastroesophageal reflux disease) Hyperlipidemia Overweight KELSIE (subconjunctival hemorrhage) Tobacco dependence Upper respiratory infection Urticaria Family History Family History Mother Family history of type 2 diabetes mellitus Social History Social History Smoking status: Former smoker Tobacco type: cigarettes Smoking end date: 09/22/21 Alcohol intake: never Substance use: never Substance use type: does not use Exam Narrative: obese white female no apparent distress head normocephalic atraumatic eyes conjunctiva pink sclera nonicteric oropharynx clear with moist mucous membranes. Neck is supple without lymphadenopathy. Lungs show fair air exchange with slight wheezing no rhonchi or rales. Heart is regular rate and rhythm without murmurs gallops or rubs. Abdomen is obese positive bowel sounds soft nontender, no hepatosplenomegaly or masses. extremities no cyanosis clubbing or edema . Neurological motor and sensory are grossly intact patient is alert and oriented x4 Course Course Emergency Course: EKG shows sinus tachycardia at a rate of [address] T wave van
[2022-02-01 18:35] VITALS: BP 160/99; PULSE 136; RESP 22; TEMP 37.6; O2SAT 89
[2022-02-01] MEDS: predniSONE 20 MG TABLET 60 MG PO (18:42)
[2022-02-01 18:48] LABS: Basophils Absolute Auto 0.04 K/mm3 (0.00-0.10); Basophils Percent Auto 0.3 % (0.0-1.0); Eosinophils Absolute Auto 0.06 K/mm3 (0.02-0.50); Eosinophils Percent Auto 0.5 % (1.0-6.0); Hematocrit 40.7 % (35.0-49.0); Hemoglobin 13.2 g/dL (12.0-15.0); Immature Granulocyte Absolute 0.19 K/mm3 (0.00-0.00); Immature Granulocyte Percent A 1.5 % (0.0-0.0); Lymphocytes Absolute Auto 1.44 K/mm3 (1.10-4.50); Lymphocytes Percent Auto 11.5 % (18.0-42.0); Mean Corpuscular HGB Conc 32.4 g/dL (32.0-36.0); Mean Corpuscular Volume 92.5 fL (78.0-102.0); Monocytes Absolute Auto 1.05 K/mm3 (0.10-0.90); Monocytes Percent Auto 8.4 % (2.0-11.0); Neutrophils Absolute Auto 9.8 K/mm3 (1.7-7.2); Neutrophils Percent Auto 77.8 % (50.0-70.0); Platelet Count Result 207 K/mm3 (150-420); Red Cell Distribution Width 12.9 % (11.6-14.4); White Blood Count 12.5 K/mm3 (4.8-10.8)
[2022-02-01 19:00] VITALS: PULSE 130; RESP 20; O2SAT 90; O2SAT 96
[2022-02-01] MEDS: IPRATROPIUM 0.5 MG/ALBUTEROL SULFATE 2.5 MG AMPUL.NEB 3 ML INHALATION (19:00)
[2022-02-01 19:03] LABS: Partial Thromboplastin Time 27.4 SEC (23.90-30.70); Prothrombin Time 11.4 Seconds (9.50-12.10)
[2022-02-01 19:10] LABS: Alanine Aminotransferase 21 U/L (14-59); Albumin Level 3.1 g/dL (3.4-5.0); Alkaline Phosphatase 69 U/L (46-116); Anion Gap 7 mmol/L (8-16); Aspartate Amino Transferase 16 U/L (15-37); Bilirubin,Total 0.4 mg/dL (0.00-1.00); Blood Urea Nitrogen 14 mg/dL (7-18); Calcium 8.8 mg/dL (8.5-10.1); Carbon Dioxide 30 mmol/L (21-32); Chloride 102 mmol/L (98-108); Estimated Glomerular Filt Rate > 60; Glucose 167 mg/dL (70-99); Influenza A QL RT-PCR Positive (Negative); Influenza B QL RT-PCR Negative (Negative); Magnesium 2.1 mg/dL (1.8-2.4); NT Pro B Type Natriuretic Pept 73 pg/mL (0-125); Osmolality Calculated 292 mOsm/kg (285-295); Potassium 3.6 mmol/L (3.5-5.1); RSV RNA, RT-PCR Negative (Negative); SARS-CoV-2 RNA PCR Negative (Negative); Sodium 139 mmol/L (136-145); Total Protein 7.6 g/dL (6.4-8.2); Troponin I 6.1 ng/L (0.00-60.4)
[2022-02-01 19:12] LABS: D Dimer 0.72 mg/L (0.19-0.50)
[2022-02-01 19:18] VITALS: PULSE 138; RESP 20; O2SAT 97
[2022-02-01] MEDS: levoFLOXacin TAB 500 MG, levoFLOXacin TAB 250 MG 750 MG PO (21:37)
[2022-02-01 21:42] VITALS: BP 136/81; PULSE 110; RESP 20; TEMP 36.6; O2SAT 94
--- NOTE | 2022-02-08 13:54 | PC.NURSE ---
final blood cultures x2 no growth after 5 days
== END 2022-02-01 21:55 | disposition home or self-care (01) ==
PROVIDERS: Emergency Provider Emergency Medicine; PCP Nurse Practitioner Family
DX: J11.1 Influenza due to unidentified influenza virus with other respiratory manifestations (principal); J44.1 Chronic obstructive pulmonary disease with (acute) exacerbation; Z20.822 Contact with and (suspected) exposure to COVID-19; Z87.891 Personal history of nicotine dependence
CPT/HCPCS: 36415; 71046; 71275; 80053; 83735; 83880; 84484; 85025; 85380; 85610; 85730; 87040; 87637; 93005; 94640; 99284; A9270; J7512; Q9967

== ENCOUNTER 2022-09-13 11:02 | Emergency (ER) | payer OTHER, SELFPAY ==
[2022-09-13 11:02] VITALS: BP 155/92; PULSE 112; RESP 20; TEMP 36.8; O2SAT 88
--- NOTE | 2022-09-13 11:05 | ED.BACK ---
HPI - Back Pain/Injury General Chief Complaint: Back Pain/Injury Stated Complaint: L flank pain Time Seen by Provider: 09/13/22 11:04 Source: patient and RN notes reviewed Mode of arrival: ambulatory Limitations: no limitations History of Present Illness MD elicited complaint: back pain Onset (ago): day(s) (1) Timing: intermittent Severity: moderate Similar Symptoms Previously: No Quality: dull and aching Location: left flank Radiation: none Exacerbating factors: movement Relieving factors: none Associated symptoms: denies other symptoms Work related injury: No Related Data Allergies Allergy/AdvReac Type Severity Reaction Status Date / Time No Known Allergies Allergy Verified 09/13/22 12:50 Review of Systems Review of Systems: All systems reviewed & are unremarkable except as noted in HPI and below PMFSH Past Medical History Medical History Allergic reaction Asthma COPD (chronic obstructive pulmonary disease) DIAMOND (generalized anxiety disorder) GERD (gastroesophageal reflux disease) Hyperlipidemia Overweight KELSIE (subconjunctival hemorrhage) Tobacco dependence Upper respiratory infection Urticaria Family History Family History Mother Family history of type 2 diabetes mellitus Social History Social History Smoking status: Current some day smoker Tobacco type: cigarettes Smoking end date: 09/22/21 Alcohol intake: never Substance use: never Substance use type: does not use Lack of Transportation: YES Lack of Food: Never True Current Housing: I Have Housing Concerned About Future Housing: No Difficulty Paying Gas/Electric Bills: YES Difficulty Paying for Meds: No Currently Unemployed: No Education: Grade School Difficulty w/ Childcare or Family Care: No Exam Const: General: healthy appearing, no acute distress and alert Nutritional Appearance: well nourished Orientation/consciousness: patient oriented x3 Limitations: no limitations HENMT: Head: normal to inspection Ears: external ears normal Face/Nose/Sinus: Normal external nose present Face and sinus: normal facial exam Mouth: Yes moist mucous membranes Eyes: Conjunctivae: conjunctivae normal Pupils: Equal, round and reactive pupils present EOM: EOMs intact bilaterally Neck: Neck: normal visual inspection Resp: Effort & Inspection: normal respiratory effort Auscultation: clear to auscultation bilaterally Cardio: Rate: regular rate Rhythm: regular rhythm GI: GI Palp: Yes Soft to palpation and No Tenderness to palpation present (GI) Auscultation: normal bowel sounds Back/Spine/Pelvis: Back: CVA tenderness ( moderate on the left) Cervical Spine: cervical ROM normal Thoracic/Lumbar Spine: thoraco-lumbar ROM normal Skin: General skin exam: normal color Rashes: no rashes Neuro: General: patient oriented x3, moves all extremities, no focal motor deficits and CN's II-XI intact bilaterally Speech: normal speech Gait exam (Neuro): Normal gait present Extrem: General: normal to inspection and no clubbing, cyanosis or edema Psych: Mental Status: mental status grossly normal Affect: normal affect Attitude: cooperative Course Vital Signs Vital signs: Vital Signs Temperature 36.8 C 09/13/22 11:02 Pulse Rate 112 H 09/13/22 11:02 Respiratory Rate 20 09/13/22 11:02 Blood Pressure 155/92 H 09/13/22 11:02 Pulse Oximetry 88 L 09/13/22 11:02 Oxygen Delivery Room Air 09/13/22 11:02 Temperature 36.7 C 09/13/22 12:47 Pulse Rate 84 09/13/22 12:47 Respiratory Rate 20 09/13/22 12:47 Blood Pressure 136/65 09/13/22 12:47 Pulse Oximetry 91 09/13/22 12:47 Oxygen Delivery Room Air 09/13/22 12:47 MDM - Back Pain/Injury Differential Diagnosis Differential diagnosis: Likely lumbar radiculopathy, sciatica, strain of lumbar r
[2022-09-13] MEDS: KETOROLAC 30 MG/ML VIAL (*BKC) IM (11:28)
[2022-09-13 11:42] LABS: Basophils Absolute Auto 0.06 K/mm3 (0.00-0.10); Basophils Percent Auto 0.9 % (0.0-1.0); Eosinophils Percent Auto 4.3 % (1.0-6.0); Hematocrit 45.9 % (35.0-49.0); Hemoglobin 14.9 g/dL (12.0-15.0); Immature Granulocyte Absolute 0.06 K/mm3 (0.00-0.00); Immature Granulocyte Percent A 0.9 % (0.0-0.0); Lymphocytes Absolute Auto 2.17 K/mm3 (1.10-4.50); Mean Corpuscular HGB Conc 32.5 g/dL (32.0-36.0); Mean Corpuscular Volume 92.4 fL (78.0-102.0); Mean Platelet Volume 10.7 fl (9.2-11.8); Monocytes Absolute Auto 0.76 K/mm3 (0.10-0.90); Monocytes Percent Auto 10.9 % (2.0-11.0); Neutrophils Absolute Auto 3.6 K/mm3 (1.7-7.2); Platelet Count Result 171 K/mm3 (150-420); Red Blood Count 4.97 M/mm3 (4.20-5.40); Red Cell Distribution Width 12.8 % (11.6-14.4)
[2022-09-13 11:43] LABS: Appearance Urine Clear (Clear); Bilirubin Urine Negative (Negative); Blood Urine Negative (Negative); Color Urine Light Yellow (Yellow); Glucose Urine UA Trace (Negative); Ketones Urine Negative (Negative); Leukocyte Esterase Ur Negative LEU/UL (Negative); Nitrate Urine Negative (Negative); Protein Urine Negative (Negative); Urobilinogen Urine 0.2 mg/dL (0.2-1.0)
[2022-09-13 11:48] LABS: Add Urine Microscopic? YES; Bacteria Urine Trace /hpf; RBC Urine None seen /hpf (0-2); Squamous Epithelial Cell Urine Moderate /hpf (Few); WBC Urine 0-3 /hpf (0-3)
[2022-09-13 11:57] LABS: Alanine Aminotransferase 32 U/L (14-59); Albumin Level 3.6 g/dL (3.4-5.0); Alkaline Phosphatase 66 U/L (46-116); Anion Gap 7 mmol/L (8-16); Aspartate Amino Transferase 17 U/L (15-37); Bilirubin,Total 0.4 mg/dL (0.00-1.00); Blood Urea Nitrogen 14 mg/dL (7-18); CRP 1.1 mg/dL (0.0-0.9); Calcium 8.9 mg/dL (8.5-10.1); Carbon Dioxide 30 mmol/L (21-32); Chloride 105 mmol/L (98-108); Estimated Glomerular Filt Rate > 60; Glucose 87 mg/dL (70-99); Osmolality Calculated 293 mOsm/kg (285-295); Potassium 3.9 mmol/L (3.5-5.1); Sodium 142 mmol/L (136-145); Total Protein 7.2 g/dL (6.4-8.2)
[2022-09-13 12:47] VITALS: BP 136/65; PULSE 84; RESP 20; TEMP 36.7; O2SAT 91
== END 2022-09-13 12:50 | disposition home or self-care (01) ==
PROVIDERS: Emergency Provider Emergency Medicine; PCP Nurse Practitioner Family
DX: S39.012A Strain of muscle, fascia and tendon of lower back, initial encounter (principal); J44.9 Chronic obstructive pulmonary disease, unspecified; E78.5 Hyperlipidemia, unspecified; F17.210 Nicotine dependence, cigarettes, uncomplicated; X58.XXXA Exposure to other specified factors, initial encounter
CPT/HCPCS: 36415; 80053; 81001; 85025; 86140; 96372; 99283; J1885

== ENCOUNTER 2022-09-24 12:22 | Outpatient (CLI) | payer OTHER, SELFPAY ==
--- NOTE | ~2022-09-24 | MM_ITS ---
EXAMINATION: MM screening vel BI w taylor HISTORY: Screening TECHNIQUE: Craniocaudal and mediolateral oblique 3-D tomosynthesis images were obtained and synthetic 2-D images were generated. CAD analysis was submitted and interpreted. COMPARISON: Comparison to multiple prior studies sequentially, with oldest reviewed study dated 12/08. BREAST PARENCHYMAL COMPOSITION: There are scattered areas of fibroglandular density. FINDINGS: Stable small benign-appearing mass upper inner quadrant of the left breast, likely benign l ymph node. There is no evidence of suspicious mass, calcification, or architectural distortion to sug gest malignancy in either breast. There has been no suspicious interval change. IMPRESSION: 1. No mammographic evidence of malignancy. 2. Recommend routine screening mammography in one year. BI-RADS Category 2: Benign finding(s). Reviewed, dictated and finalized at location A.
== END 2022-09-24 12:23 | disposition home or self-care (01) ==
LOC: CHSIMG 12:23
PROVIDERS: PCP Nurse Practitioner Family; Visit Provider Nurse Practitioner Family
DX: Z12.31 Encounter for screening mammogram for malignant neoplasm of breast (principal)
CPT/HCPCS: 77063; 77067

== ENCOUNTER 2022-11-14 01:32 | Day surgery (SDC) | payer OTHER, SELFPAY ==
[2022-10-31 10:57] VITALS: BMI 33.3
[2022-11-14 06:56] VITALS: BP 134/81; PULSE 106; RESP 18; TEMP 35.9; O2SAT 91
[2022-11-14] MEDS: LACTATED RINGERS 1,000 ML 150 ML IV CONT (07:03)
--- NOTE | 2022-11-14 07:29 | SUR.PREOP ---
DR DAWSON NOTIFIED PT ATE TWO PIECES OF TOAST YESTERDAY AT 10AM, PT STATES HER STOOLS ARE CLEAR, DR DAWSON SEEING PT, NO NEW ORDERS RECEIVED. DR WINCHESTER AND PEÑA Avelar NOTIFIED OF PT'S COPD, PT'S OXYGEN SATS 91% ON ROOM AIR, PT TOOK HER INHALERS AND NEBULIZER YESTERDAY, PT'S HEART RATE 106, PT STATES SHE IS ANXIOUS, OCCASIONAL SHORTNESS OF BREATH, PT STATES THIS IS HER NORMAL, DR WINCHESTER TO SEE PT, NO NEW ORDERS RECEIVED.
--- NOTE | 2022-11-14 07:59 | PM.IMHP ---
H&P: HPI History of Present Illness Date/Time: 11/14/22 07:59 Chief Complaint: Screening for colorectal cancer, history of colon polyps, family history of colon cancer Narrative: This is a 62-year-old woman who presents for colonoscopy. Her last colonoscopy was 5 years ago and polyps were removed at that time. She has a sister who recently of colon cancer. She denies any hematochezia or melena. Her last colonoscopy was in [place] and she was found to have a very tortuous colon and had to be referred to a different facility. Review of Systems Review of Systems: All systems reviewed & are unremarkable except as noted in HPI and below Constitutional: Constitutional: Denies chills, Denies fever(s), Denies headache(s) and Denies weight loss Eyes: Eyes: Denies change in vision ENT: Denies dizziness, Denies headache(s), Denies neck mass and Denies throat swelling Cardiovascular: Cardiovascular: Denies chest pain, Denies lightheadedness and Denies dyspnea Respiratory: Respiratory: Denies cough, Denies dyspnea and Denies wheezing Gastrointestinal: Gastrointestinal: Denies abdominal pain, Denies change in bowel habits, Denies nausea and Denies vomiting Genitourinary: Genitourinary: Denies hematuria and Denies dysuria Musculoskeletal: Musculoskeletal: Reports as per HPI Integumentary/Breasts: Skin/Breast: Reports as per HPI Neurologic: Denies dizziness and Denies headache(s) Allergic/Immunologic: Allergic/Immunologic: Denies throat swelling and Denies wheezing [facility] Past Medical History Medical History Allergic reaction Asthma COPD (chronic obstructive pulmonary disease) DIAMOND (generalized anxiety disorder) GERD (gastroesophageal reflux disease) Hyperlipidemia Overweight KELSIE (subconjunctival hemorrhage) Tobacco dependence Upper respiratory infection Urticaria Family History Family History Mother Family history of type 2 diabetes mellitus Social History Social History Smoking packs per day: 0.75 Smoking cigarettes per day: 15.0 Years smoked: 47 Smoking pack-years: 35.25 Smoking status: Current every day smoker Tobacco type: cigarettes Smoking end date: 09/22/21 Additional smoking assessment comments: QUIT SMOKING 09/22/2021-LOST 2 SIB. WITHIN 2 MONTHS & STARTED SMOKING 3-5/D Alcohol intake: current Substance use: never Substance use type: does not use Lack of Transportation: YES Lack of Food: Never True Current Housing: I Have Housing Concerned About Future Housing: No Difficulty Paying Gas/Electric Bills: YES Difficulty Paying for Meds: No Currently Unemployed: No Education: Grade School Difficulty w/ Childcare or Family Care: No Living arrangements: with family Spiritual care concerns: No Meds Home Medications and Allergies Home Medications Medication Instructions Recorded Confirmed Type famotidine 20 mg tablet 20 mg PO DAILY #30 tabs 04/15/22 10/31/22 Rx albuterol sulfate 90 mcg/actuation See Rx Instructions .Route 09/05/22 10/31/22 Rx aerosol inhaler .COMPLEX #8.5 grams ipratropium 0.5 mg-albuterol 3 mg See Rx Instructions .Route 09/05/22 10/31/22 Rx (2.5 mg base)/3 mL nebulization .COMPLEX #90 mL soln tramadol 50 mg tablet 50 mg PO Q6H PRN pain #20 tabs 09/18/22 10/31/22 Rx budesonide 160 mcg-glycopyr 9 2 inh inhalation BID PRN Shortness 10/31/22 10/31/22 History mcg-formot 4.8 mcg/actuation HFA Of Breath Or Wheezing inhaler ([employer]rez[employer]phere) montelukast 10 mg tablet 10 mg PO DAILY 10/31/22 10/31/22 History Allergies Allergy/AdvReac Type Severity Reaction Status Date / Time No Known Allergies Allergy Verified 11/14/22 06:53 Vital Signs Vital Signs - 24 hr 11/14/22 06:56 Temperature 35.9 C L Pulse Rate 106 H Respiratory Rate 18 Blood Pressur
--- NOTE | 2022-11-14 08:09 | WPDANESEPPF ---
Anes - Initial Pre Proc Eval Procedure: Operation Date: 11/14/22 08:00 Proposed Procedures p Screening Colonoscopy - Ian Barros DO Date/Time: 11/14/22 08:09 Surgeon: Ian Barros DO Pre Op Diagnosis: neoplasm screening Patient Data Age: 62 Gender: F Height: 1.52 m Weight: 76.4 kg Last Vital Signs Temp 96.7 F L 11/14/22 06:56 Pulse 106 H 11/14/22 06:56 Resp 18 11/14/22 06:56 BP 134/81 11/14/22 06:56 Pulse Ox 91 11/14/22 06:56 O2 Del Method Room Air 11/14/22 06:56 Allergies Allergy/AdvReac Type Severity Reaction Status Date / Time No Known Allergies Allergy Verified 11/14/22 06:53 Home Medications Medication Instructions Recorded Confirmed Type famotidine 20 mg tablet 20 mg PO DAILY #30 tabs 04/15/22 10/31/22 Rx albuterol sulfate 90 mcg/actuation See Rx Instructions .Route 09/05/22 10/31/22 Rx aerosol inhaler .COMPLEX #8.5 grams ipratropium 0.5 mg-albuterol 3 mg See Rx Instructions .Route 09/05/22 10/31/22 Rx (2.5 mg base)/3 mL nebulization .COMPLEX #90 mL soln tramadol 50 mg tablet 50 mg PO Q6H PRN pain #20 tabs 09/18/22 10/31/22 Rx budesonide 160 mcg-glycopyr 9 2 inh inhalation BID PRN Shortness 10/31/22 10/31/22 History mcg-formot 4.8 mcg/actuation HFA Of Breath Or Wheezing inhaler ([email or web address]here) montelukast 10 mg tablet 10 mg PO DAILY 10/31/22 10/31/22 History Patient hx anesthesia problems: none Family hx anesthesia problems: none Results Review: All pre-operative results and documents have been reviewed as part of the pre-operative evaluation. [facility] Past Medical History Medical History Allergic reaction Asthma COPD (chronic obstructive pulmonary disease) DIAMOND (generalized anxiety disorder) GERD (gastroesophageal reflux disease) Hyperlipidemia Overweight KELSIE (subconjunctival hemorrhage) Tobacco dependence Upper respiratory infection Urticaria Family History Family History Mother Family history of type 2 diabetes mellitus Social History Social History Smoking packs per day: 0.75 Smoking cigarettes per day: 15.0 Years smoked: 47 Smoking pack-years: 35.25 Smoking status: Current every day smoker Tobacco type: cigarettes Smoking end date: 09/22/21 Additional smoking assessment comments: QUIT SMOKING 09/22/2021-LOST 2 SIB. WITHIN 2 MONTHS & STARTED SMOKING 3-5/D Alcohol intake: current Substance use: never Substance use type: does not use Lack of Transportation: YES Lack of Food: Never True Current Housing: I Have Housing Concerned About Future Housing: No Difficulty Paying Gas/Electric Bills: YES Difficulty Paying for Meds: No Currently Unemployed: No Education: Grade School Difficulty w/ Childcare or Family Care: No Living arrangements: with family Spiritual care concerns: No Anes - Eval Final PreProcedure Day of Procedure 11/14/22 08:09 Patient weight: obese Heart: regular rate and rhythm Lungs: wheezes (will use inhaler prior to procedure) Airway: Mallampati scale class II Neurological: alert and oriented Last oral intake: >/= 8 hours ASA classification: III Emergent: no Anesthetic plan: proceed Anesthesia type and monitoring: general GIVS and standard monitoring Results Review: All pre-operative results and documents have been reviewed as part of the pre-operative evaluation. Informed Consent: The patient's anesthetic plan and its attendant risks and benefits were discussed with the patient/family/POA. Questions were solicited and answers provided to the satisfaction of the patient/family/POA.
[2022-11-14 09:05] VITALS: BP 137/74; PULSE 114; RESP 24; O2SAT 99
[2022-11-14 09:15] VITALS: BP 152/79; PULSE 128; RESP 20; O2SAT 98
[2022-11-14 09:25] VITALS: BP 127/90; PULSE 112; RESP 20; O2SAT 98
--- NOTE | 2022-11-14 09:26 | SUR.PHASEII ---
DR WINCHESTER MADE AWARE OF PT'S VITAL SIGNS, BLOOD PRESSURE 152/79, HEART RATE 128-130, PT AWAKE BUT DROWSY, ABLE TO HOLD CONVERSATION WITH SLIGHT SHORTNESS OF BREATH, PT REMOVED SIMPLE FACE MASK HERSELF, 99% ON ROOM AIR, PT DENIES ANY COMPLAINTS, DR WINCHESTER SEEING PT AT BEDSIDE, NO NEW ORDERS RECEIVED.
== END 2022-11-14 09:55 | disposition home or self-care (01) ==
PROVIDERS: PCP Nurse Practitioner Family; Visit Provider Surgery
PROC: 0DJD8ZZ Inspection of Lower Intestinal Tract, Via Natural or Artificial Opening Endoscopic (ICD-10-PCS; CPT 45378; principal; 2022-11-14 08:00)
DX: Z12.11 Encounter for screening for malignant neoplasm of colon (principal); D12.3 Benign neoplasm of transverse colon; D12.5 Benign neoplasm of sigmoid colon; K57.30 Diverticulosis of large intestine without perforation or abscess without bleeding; Z80.0 Family history of malignant neoplasm of digestive organs; J44.9 Chronic obstructive pulmonary disease, unspecified; E78.5 Hyperlipidemia, unspecified; K21.9 Gastro-esophageal reflux disease without esophagitis; F41.1 Generalized anxiety disorder; F17.210 Nicotine dependence, cigarettes, uncomplicated; Z79.51 Long term (current) use of inhaled steroids; E66.9 Obesity, unspecified; Z68.32 Body mass index [BMI] 32.0-32.9, adult
CPT/HCPCS: 45385; 88305; J2704; J7120

== ENCOUNTER 2022-12-10 09:43 | Outpatient (CLI) | payer OTHER, SELFPAY ==
[2022-12-10 09:55] LABS: Basophils Absolute Auto 0.07 K/mm3 (0.00-0.10); Eosinophils Absolute Auto 0.31 K/mm3 (0.02-0.50); Eosinophils Percent Auto 4.2 % (1.0-6.0); Hematocrit 46.7 % (35.0-49.0); Hemoglobin 15.1 g/dL (12.0-15.0); Immature Granulocyte Absolute 0.04 K/mm3 (0.00-0.00); Immature Granulocyte Percent A 0.5 % (0.0-0.0); Lymphocytes Absolute Auto 2.28 K/mm3 (1.10-4.50); Lymphocytes Percent Auto 31.1 % (18.0-42.0); Mean Corpuscular HGB Conc 32.3 g/dL (32.0-36.0); Mean Corpuscular Volume 92.8 fL (78.0-102.0); Mean Platelet Volume 10.7 fl (9.2-11.8); Monocytes Absolute Auto 0.68 K/mm3 (0.10-0.90); Monocytes Percent Auto 9.3 % (2.0-11.0); Neutrophils Absolute Auto 3.9 K/mm3 (1.7-7.2); Neutrophils Percent Auto 53.9 % (50.0-70.0); Platelet Count Result 195 K/mm3 (150-420); Red Blood Count 5.03 M/mm3 (4.20-5.40); Red Cell Distribution Width 12.4 % (11.6-14.4); White Blood Count 7.3 K/mm3 (4.8-10.8)
[2022-12-10 11:06] LABS: Alanine Aminotransferase 16 U/L (14-59); Albumin Level 3.6 g/dL (3.4-5.0); Alkaline Phosphatase 65 U/L (46-116); Anion Gap 10 mmol/L (8-16); Aspartate Amino Transferase 14 U/L (15-37); Bilirubin,Total 0.5 mg/dL (0.00-1.00); Blood Urea Nitrogen 17 mg/dL (7-18); Calcium 9.5 mg/dL (8.5-10.1); Carbon Dioxide 27 mmol/L (21-32); Chloride 104 mmol/L (98-108); Estimated Glomerular Filt Rate > 60; Free T4 Free Thyroxine 0.94 ng/dL (0.76-1.46); Glucose 127 mg/dL (70-99); Osmolality Calculated 295 mOsm/kg (285-295); Potassium 4.2 mmol/L (3.5-5.1); Sodium 141 mmol/L (136-145); Thyroid Stimulating Hormone 1.21 uIU/mL (0.36-3.74); Vitamin B12 547 pg/mL (193-986)
[2022-12-10 13:53] LABS: Hemoglobin A1C 5.9 % (<5.7)
[2022-12-14 22:50] LABS: Vitamin D 25 Hydroxy 14 ng/mL (30-100)
== END 2022-12-10 09:44 | disposition home or self-care (01) ==
PROVIDERS: PCP Nurse Practitioner Family; Visit Provider Nurse Practitioner Family
DX: F41.1 Generalized anxiety disorder (principal); E11.9 Type 2 diabetes mellitus without complications; Z79.899 Other long term (current) drug therapy
CPT/HCPCS: 36415; 80053; 82306; 82607; 83036; 83735; 84439; 84443; 85025

== ENCOUNTER 2023-01-19 20:14 | Observation (INO) | payer OTHER, SELFPAY ==
--- NOTE | ~2023-01-19 | CT_ITS ---
EXAMINATION: CT diagnostic chest wo con DATE: 01/19/2023 21:43 INDICATION: COPD exacerbation TECHNIQUE: Computed tomography (CT) of the chest was performed with 100 mL Omnipaque-350 intravenous contrast. Automated exposure control and iterative reconstruction technique were employed. The dose-l ength product was 190.06 mGy-cm. COMPARISON: None. FINDINGS: CHEST: Thoracic aorta: No significant dilation or calcification. Lung parenchyma and airways: Multifocal areas of groundglass consolidative and reticular opacities wi th associated bronchiectasis in the right upper lobe superior segment of the right lower lobe, bilate ral dependent lower lobes, and lateral aspect of the right lower lobe. Bronchial wall thickening. Mil d emphysematous change Thoracic inlet, axillae and chest wall: No thyroid or soft tissue mass. No axillary lymphadenopathy. Mediastinum: No mass or lymphadenopathy. Granulomatous calcifications. Heart and pericardium: Normal heart size. No pericardial effusion. Coronary artery calcifications: Absent. Pleura: No effusion or mass. Upper abdomen: No significant finding. Thoracic bones: No acute osseous finding in the chest. IMPRESSION: Multifocal pneumonia in a background of mild emphysema and chronic bronchitis. Reviewed, dictated and finalized at location K. INE SETTER AUTOMATIC
--- NOTE | ~2023-01-19 | CT_ITS ---
EXAMINATION: CT abdomen pelvis wo con DATE: 01/19/2023 20:52 INDICATION: Left flank pain X 2 HRS. TECHNIQUE: Computed tomography (CT) of the abdomen and pelvis was performed without intravenous contr ast. Automated exposure control and iterative reconstruction technique were employed. The dose-length product was 569.27 mGy-cm. COMPARISON: None. FINDINGS: Lower thorax: Geographic areas of groundglass and reticular opacities with accompanying bronchiectasi s and tree-in-bud opacities in the dependent bilateral right lower lobe and the dependent left lower lobe. Liver: Normal. Biliary/Gallbladder: Gallbladder is normal. No bile duct dilation. Pancreas: No mass or duct dilation. Spleen: Normal. Adrenals:No mass. Kidneys: No suspicious mass, obstructing stone, or hydronephrosis. GI tract: No small or large bowel dilation. Normal appendix. Mesentery/Peritoneum: No ascites, mass, or free air. Retroperitoneum: No mass. Pelvis: Pelvic organs are within normal limits. Soft Tissues: Soft tissues and body wall unremarkable. Bones: No acute osseous finding. IMPRESSION: No acute abdominopelvic process detected. Scattered areas of inflammatory/infectious change in the lungs. Please refer to report on the concurr ent CT chest for further details. Reviewed, dictated and finalized at location K. PRESIDENT GLOBAL ADVERTISING SALES IMPRESSION: No acute abdominopelvic process detected. Scattered areas of inflammatory/infectious change in the lungs. Please refer to report on the concurrent CT chest for further details.
[2023-01-19 20:25] VITALS: BP 91/71; RESP 24; TEMP 37.2; O2SAT 88
[2023-01-19 20:39] VITALS: PULSE 140
--- NOTE | 2023-01-19 20:41 | ED.ABDPAIN ---
HPI - Abdominal Pain General Chief Complaint: Urogenital-Female Stated Complaint: stabbing pain in side Time Seen by Provider: 01/19/23 20:23 Source: patient Mode of arrival: wheelchair Limitations: no limitations History of Present Illness HPI narrative: 62 yo F with PMHx of COPD, tobacco abuse, MDD, presents to ED with complaint of left flank pain that started today. Described as sharp, stabbing pain in her side. Also c/o cough productive of mild yellow sputum for 3 days. Pt has no history of kidney stone. Pt uses duonebs at home intermittently. Denied shortness of breath. MD elicited complaint: flank pain Pertinent past history: none Onset (ago): hour(s) Pain Consistency: constant Location: L flank Severity: severe Quality: stabbing and sharp Radiation: none Exacerbating factors: nothing Relieving factors: nothing Related Data Home Medications Medication Instructions Recorded Confirmed budesonide 160 mcg-glycopyr 9 2 inh inhalation BID PRN Shortness 10/31/22 01/19/23 mcg-formot 4.8 mcg/actuation HFA Of Breath Or Wheezing inhaler ([employer]) Allergies Allergy/AdvReac Type Severity Reaction Status Date / Time No Known Allergies Allergy Verified 01/08/23 10:44 Review of Systems Constitutional: Constitutional: Reports as per HPI and Reports no additional constitutional complaints Eyes: Eyes: Reports as per HPI and Reports no additional eye complaints ENT: Reports system reviewed and no additional complaints, except as documented and Reports as per HPI Cardiovascular: Cardiovascular: Reports as per HPI and Reports no additional cardiovascular complaints Respiratory: Respiratory: Reports as per HPI and Reports no additional respiratory complaints Gastrointestinal: Gastrointestinal: Reports as per HPI and Reports no additional gastrointestinal complaints Genitourinary: Genitourinary: Reports as per HPI Musculoskeletal: Musculoskeletal: Reports no additional musculoskeletal complaints and Reports as per HPI Integumentary/Breasts: Skin/Breast: Reports system reviewed and no additional complaints, except as docu and Reports as per HPI Neurologic: Reports system reviewed and no additional complaints, except as documented and Reports as per HPI Psychiatric: Psychiatric: Reports no additional psychiatric complaints and Reports as per HPI Endocrine: Endocrine: Reports no additional endocrine complaints and Reports as per HPI Hematologic/Lymphatic: Hematologic/Lymphatic: Reports no additional hematologic/lymphatic complaints and Reports as per HPI Allergic/Immunologic: Allergic/Immunologic: Reports no additional allergic/immunologic complaints and Reports as per HPI PMFSH Past Medical History Medical History Allergic reaction Asthma COPD (chronic obstructive pulmonary disease) DIAMOND (generalized anxiety disorder) GERD (gastroesophageal reflux disease) Hyperlipidemia Overweight KELSIE (subconjunctival hemorrhage) Tobacco dependence Upper respiratory infection Urticaria Family History Family History Mother Family history of type 2 diabetes mellitus Social History Social History Smoking packs per day: 0.75 Smoking cigarettes per day: 15.0 Years smoked: 47 Smoking pack-years: 35.25 Smoking status: Current every day smoker Tobacco type: cigarettes Smoking end date: 09/22/21 Additional smoking assessment comments: QUIT SMOKING 09/22/2021-LOST 2 SIB. WITHIN 2 MONTHS & STARTED SMOKING 3-5/D Alcohol intake: current Substance use: never Substance use type: does not use Lack of Transportation: YES Lack of Food: Never True Current Housing: I Have Housing Concerned About Future Housing: No Difficulty Paying Gas/Electric Bills: YES Difficulty Paying for Meds: No Currently Unemployed: No Education: Gr
[2023-01-19 20:57] LABS: Basophils Absolute Auto 0.09 K/mm3 (0.00-0.10); Basophils Percent Auto 0.6 % (0.0-1.0); Eosinophils Absolute Auto 0.22 K/mm3 (0.02-0.50); Eosinophils Percent Auto 1.3 % (1.0-6.0); Hematocrit 44.4 % (35.0-49.0); Hemoglobin 14.2 g/dL (12.0-15.0); Immature Granulocyte Absolute 0.08 K/mm3 (0.00-0.00); Immature Granulocyte Percent A 0.5 % (0.0-0.0); Lymphocytes Absolute Auto 2.07 K/mm3 (1.10-4.50); Lymphocytes Percent Auto 12.7 % (18.0-42.0); Mean Corpuscular Hemoglobin 29.6 pg (27.0-31.0); Mean Corpuscular Volume 92.5 fL (78.0-102.0); Mean Platelet Volume 10.7 fl (9.2-11.8); Monocytes Absolute Auto 1.29 K/mm3 (0.10-0.90); Monocytes Percent Auto 7.9 % (2.0-11.0); Neutrophils Absolute Auto 12.6 K/mm3 (1.7-7.2); Platelet Count Result 198 K/mm3 (150-420); Red Cell Distribution Width 12.5 % (11.6-14.4); White Blood Count 16.4 K/mm3 (4.8-10.8)
[2023-01-19 21:14] LABS: Alanine Aminotransferase 26 U/L (14-59); Albumin Level 3.2 g/dL (3.4-5.0); Alkaline Phosphatase 84 U/L (46-116); Anion Gap 5 mmol/L (8-16); Aspartate Amino Transferase 14 U/L (15-37); Bilirubin,Total 0.5 mg/dL (0.00-1.00); Blood Urea Nitrogen 15 mg/dL (7-18); Carbon Dioxide 34 mmol/L (21-32); Chloride 99 mmol/L (98-108); Estimated CRCL calculation 52 ml/min; Estimated Glomerular Filt Rate > 60; Glucose 172 mg/dL (70-99); Osmolality Calculated 290 mOsm/kg (285-295); Potassium 3.4 mmol/L (3.5-5.1); Sodium 138 mmol/L (136-145); Total Protein 7.3 g/dL (6.4-8.2)
[2023-01-19] MEDS: KETOROLAC 30 MG/ML VIAL (*BKC) IV PUSH (21:14)
[2023-01-19 23:05] VITALS: O2SAT 95
[2023-01-19 23:28] VITALS: PULSE 97; RESP 20; O2SAT 93
[2023-01-19 23:41] LABS: Base Excess ABG 2.2 mmol/L (0-2); HCO3 ABG 28.4 mmol/L (23-29); Oxygen Content ABG 18.5 %vol (16.0-22.0); Oxygen Saturation ABG 91.6 % (95-97); Oxyhemoglobin 90.1 % (94-100); PCO2 ABG 50.2 mmHg (35-45); PO2 ABG 61.4 mmHg (80-90); Total Hemoglobin 14.6 g/dL (12.0-18.0); pH ABG 7.37 (7.35-7.45)
[2023-01-19 23:42] LABS: Device NASAL CANNULA; Modified Allen's Test Pass; Site Drawn LEFT RADIAL
[2023-01-19 23:50] VITALS: BMI 31.2
--- NOTE | 2023-01-19 23:50 | ADMGEN ---
This patient, Jesusita Gtz, was admitted to 2nd Floor Room 205-2. Patient/family oriented to hospital policies and general routines including ID bracelet, bed and alarms, visiting hours, pain management, procedures, bathroom and other care routines, personal items, smoking policy, room service/diet, and visiting hours. Information on how to activate the Rapid Response Team has been discussed. Patient/Family are encouraged to report perceived risks to care and to ask questions if they do not understand what they are told or what they should do.
[2023-01-19] MEDS: SODIUM CHLORIDE 0.9% IV 1,000 ML 125 ML IV CONT (23:54)
[2023-01-19 23:55] VITALS: PULSE 107; RESP 20; O2SAT 92
[2023-01-20] VITALS (23 sets, daily range): BP systolic 135–145; BP diastolic 69–91; PULSE 85–120; RESP 18–20; TEMP 35.7–36.4; O2SAT 90–96
[2023-01-20] MEDS: IPRATROPIUM 0.5 MG/ALBUTEROL SULFATE 2.5 MG AMPUL.NEB 3 ML INHALATION ×5 (00:13→22:31)
[2023-01-20] MEDS: methylPREDNISolone SOD SUCC 125 MG VIAL IV PUSH (00:42)
[2023-01-20] MEDS: AZITHROMYCIN 500 MG/NS 250 ML 500 MG/250 ML BAG 250 MG IVPB ×2 (00:52→22:30)
[2023-01-20 05:11] LABS: Basophils Absolute Auto 0.05 K/mm3 (0.00-0.10); Basophils Percent Auto 0.4 % (0.0-1.0); Eosinophils Absolute Auto 0.02 K/mm3 (0.02-0.50); Eosinophils Percent Auto 0.2 % (1.0-6.0); Hematocrit 43.3 % (35.0-49.0); Hemoglobin 13.9 g/dL (12.0-15.0); Immature Granulocyte Absolute 0.08 K/mm3 (0.00-0.00); Immature Granulocyte Percent A 0.6 % (0.0-0.0); Lymphocytes Absolute Auto 0.74 K/mm3 (1.10-4.50); Lymphocytes Percent Auto 5.8 % (18.0-42.0); Mean Corpuscular HGB Conc 32.1 g/dL (32.0-36.0); Mean Corpuscular Hemoglobin 30.2 pg (27.0-31.0); Mean Corpuscular Volume 94.1 fL (78.0-102.0); Mean Platelet Volume 10.6 fl (9.2-11.8); Monocytes Absolute Auto 0.32 K/mm3 (0.10-0.90); Monocytes Percent Auto 2.5 % (2.0-11.0); Neutrophils Absolute Auto 11.5 K/mm3 (1.7-7.2); Neutrophils Percent Auto 90.5 % (50.0-70.0); Platelet Count Result 169 K/mm3 (150-420); Red Cell Distribution Width 12.5 % (11.6-14.4); White Blood Count 12.7 K/mm3 (4.8-10.8)
[2023-01-20 05:26] LABS: Alanine Aminotransferase 24 U/L (14-59); Albumin Level 2.9 g/dL (3.4-5.0); Alkaline Phosphatase 75 U/L (46-116); Anion Gap 6 mmol/L (8-16); Aspartate Amino Transferase 14 U/L (15-37); Bilirubin,Total 0.3 mg/dL (0.00-1.00); Blood Urea Nitrogen 13 mg/dL (7-18); Calcium 8.4 mg/dL (8.5-10.1); Carbon Dioxide 33 mmol/L (21-32); Chloride 102 mmol/L (98-108); Estimated CRCL calculation 58 ml/min; Estimated Glomerular Filt Rate > 60; Glucose 163 mg/dL (70-99); Osmolality Calculated 296 mOsm/kg (285-295); Potassium 4.3 mmol/L (3.5-5.1); Sodium 141 mmol/L (136-145)
--- NOTE | 2023-01-20 05:27 | PC.NURSE ---
Patient arrived on the floor at 2350 on 01/19/23. Patient was on 2L of O2, NC and telemetry. Patient's vitals were WNL except for HR was tachycardic. Results were similar to those in ED. Patient was admitted to the floor, given IV antibiotics, solu-medrol, and went to sleep shortly after admission was completed. Patient was at 96% O2 sats, and was dropped down to 1L of O2, NC. She remains at 91% on 1L. Patient has received neb treatments, and O2 administration was discussed with the RT.
--- NOTE | 2023-01-20 07:17 | PM.IMHP ---
H&P: HPI History of Present Illness Date/Time: 01/20/23 07:17 Chief Complaint: Dyspnea, Left flank pain Narrative: 01/20: This is a 62-year-old female patient with a history of COPD, tobacco abuse, hyperlipidemia, generalized anxiety disorder, GERD, allergies and asthma who sought care at the emergency department last night due to severe left flank pain as well as anxiety and dyspnea. On arrival to the ER patient was found to be saturating in the 80s on room air. Her pain was relieved after IV Toradol and has not returned. CT scan of the abdomen and pelvis was unremarkable. CT scan of the chest showed multifocal pneumonia overlying chronic bronchitis and emphysema. Vital signs showed initial heart rate was 140s with tachypnea and hypoxia. Labs are significant for elevated white blood cell count 16.4 which decreased to 12.7 this morning. ABG shows compensated respiratory acidosis with a pH of 7.37 pCO2 50.2 PO2 of 61.4. Supplemental oxygenation was started at 2 liters/minute and has been weaned to 1 liter/minute. Patient reports that after her pain was controlled then breathing was able to relax. Patient reports she also likely has ADHD that has not been treated so she is not used to just sitting around doing nothing. The overnight nursing staff stated that patient probably need medication for anxiety. I discussed this with the patient she states that she used to be on Wellbutrin and her primary switched her to escitalopram and she has been the on this for less than a month. Patient states that she is always anxious and so was much of her family. Patient that she stopped smoking over the started went to her siblings back to back. Patient's daughter also called to make sure that we understood that patient minimizes her symptoms in order to say that everything is okay but she calls the family every day complaining breathing. Daughter requested pulmonology referral. Patient denied any chest pain nausea vomiting fever chills constipation diarrhea dysuria or any other concerning symptoms. Once her left flank pain was under control she felt like she was near baseline health status. Review of Systems Review of Systems: All systems reviewed & are unremarkable except as noted in HPI and below PMFSH Past Medical History Medical History Allergic reaction Asthma COPD (chronic obstructive pulmonary disease) DIAMOND (generalized anxiety disorder) GERD (gastroesophageal reflux disease) Hyperlipidemia Overweight KELSIE (subconjunctival hemorrhage) Tobacco dependence Upper respiratory infection Urticaria Family History Family History Mother Family history of type 2 diabetes mellitus Social History Social History Smoking packs per day: 0.3 Smoking cigarettes per day: 6.0 Years smoked: 35 Smoking pack-years: 10.50 Smoking status: Current every day smoker Tobacco type: cigarettes Smoking end date: 09/22/21 Additional smoking assessment comments: QUIT SMOKING 09/22/2021-LOST 2 SIB. WITHIN 2 MONTHS & STARTED SMOKING 3-5/D Alcohol intake: never Substance use: never Substance use type: does not use Lack of Transportation: No Lack of Food: Never True Current Housing: I Have Housing Concerned About Future Housing: No Difficulty Paying Gas/Electric Bills: No Difficulty Paying for Meds: No Currently Unemployed: No Education: High School Diploma/GED Difficulty w/ Childcare or Family Care: No Living arrangements: with family Spiritual care concerns: No Meds Home Medications and Allergies Home Medications Medication Instructions Recorded Confirmed Type famotidine 20 mg tablet 20 mg PO DAILY #30 tabs 04/15/22 01/19/23 Rx albuterol sulfate 90 mcg/actuation See Rx Instructions .Route 09/05/22 01/19/23 Rx aerosol inhaler .CO
[2023-01-20] MEDS: NICOTINE (*PBKC) 21 MG PATCH 1 PATCH TRANSDERM (09:24)
[2023-01-20] MEDS: ESCITALOPRAM OXALATE 10 MG TABLET PO (09:24)
[2023-01-20] MEDS: UMECLIDINIUM/VILANTEROL 62.5-25 MCG ELLIPTA 1 PUFF INHALATION (09:24)
[2023-01-20] MEDS: MONTELUKAST SODIUM 10 MG TABLET PO (09:24)
[2023-01-20] MEDS: FAMOTIDINE 20 MG TABLET PO (09:25)
[2023-01-20] MEDS: traMADol HCL (*CRX) 50 MG TABLET PO ×2 (14:08→20:51)
[2023-01-20 14:36] LABS: Appearance Urine Clear (Clear); Bilirubin Urine Negative (Negative); Blood Urine Negative (Negative); Color Urine Yellow (Yellow); Glucose Urine UA 2+ (Negative); Ketones Urine 1+ (Negative); Leukocyte Esterase Ur Negative LEU/UL (Negative); Nitrate Urine Negative (Negative); Protein Urine Negative (Negative); Specific Grav Ur 1.025 (1.010-1.020); Urobilinogen Urine 0.2 mg/dL (0.2-1.0)
[2023-01-20 14:42] LABS: Add Urine Microscopic? YES; RBC Urine None seen /hpf (0-2); Squamous Epithelial Cell Urine Few /hpf (Few); WBC Urine 0-3 /hpf (0-3)
[2023-01-20 14:43] LABS: Bacteria Urine Trace /hpf
[2023-01-20 14:47] LABS: Hemoglobin A1C 6.2 % (<5.7)
[2023-01-20 17:21] LABS: Glucose Point of Care 151 mg/dl (65-105)
[2023-01-20] MEDS: ALPRAZolam (*CRX) 0.5 MG TABLET PO (20:51)
[2023-01-20 20:52] LABS: Glucose Point of Care 188 mg/dl (65-105)
[2023-01-21] VITALS (15 sets, daily range): BP systolic 103; BP diastolic 64; PULSE 86–117; RESP 18–22; TEMP 35.6; O2SAT 80–99
[2023-01-21] MEDS: IPRATROPIUM 0.5 MG/ALBUTEROL SULFATE 2.5 MG AMPUL.NEB 3 ML INHALATION ×2 (05:40→13:07)
[2023-01-21 05:47] LABS: Basophils Absolute Auto 0.02 K/mm3 (0.00-0.10); Basophils Percent Auto 0.2 % (0.0-1.0); Hematocrit 38.3 % (35.0-49.0); Hemoglobin 12.1 g/dL (12.0-15.0); Immature Granulocyte Absolute 0.11 K/mm3 (0.00-0.00); Immature Granulocyte Percent A 0.9 % (0.0-0.0); Lymphocytes Absolute Auto 1.23 K/mm3 (1.10-4.50); Mean Corpuscular HGB Conc 31.6 g/dL (32.0-36.0); Mean Corpuscular Volume 94.8 fL (78.0-102.0); Mean Platelet Volume 10.5 fl (9.2-11.8); Monocytes Percent Auto 7.3 % (2.0-11.0); Neutrophils Absolute Auto 10.1 K/mm3 (1.7-7.2); Neutrophils Percent Auto 81.6 % (50.0-70.0); Platelet Count Result 195 K/mm3 (150-420); Red Blood Count 4.04 M/mm3 (4.20-5.40); Red Cell Distribution Width 12.7 % (11.6-14.4); White Blood Count 12.3 K/mm3 (4.8-10.8)
[2023-01-21 06:11] LABS: Alanine Aminotransferase 18 U/L (14-59); Albumin Level 2.4 g/dL (3.4-5.0); Alkaline Phosphatase 62 U/L (46-116); Anion Gap 2 mmol/L (8-16); Aspartate Amino Transferase < 10 U/L (15-37); Bilirubin,Total 0.1 mg/dL (0.00-1.00); Blood Urea Nitrogen 22 mg/dL (7-18); Calcium 8.6 mg/dL (8.5-10.1); Carbon Dioxide 34 mmol/L (21-32); Chloride 107 mmol/L (98-108); Estimated CRCL calculation 65 ml/min; Estimated Glomerular Filt Rate > 60; Glucose 136 mg/dL (70-99); Osmolality Calculated 301 mOsm/kg (285-295); Potassium 4.4 mmol/L (3.5-5.1); Sodium 143 mmol/L (136-145)
[2023-01-21] MEDS: UMECLIDINIUM/VILANTEROL 62.5-25 MCG ELLIPTA 1 PUFF INHALATION (08:48)
[2023-01-21] MEDS: MONTELUKAST SODIUM 10 MG TABLET PO (08:49)
[2023-01-21] MEDS: NICOTINE (*PBKC) 21 MG PATCH 1 PATCH TRANSDERM (08:49)
[2023-01-21] MEDS: methylPREDNISolone SOD SUCC 125 MG VIAL 80 MG IV PUSH (08:49)
[2023-01-21] MEDS: ESCITALOPRAM OXALATE 10 MG TABLET PO (08:49)
[2023-01-21] MEDS: FAMOTIDINE 20 MG TABLET PO (08:49)
[2023-01-21] MEDS: ENOXAPARIN 40 MG/0.4 ML SYRINGE SUB-Q (08:50)
--- NOTE | 2023-01-21 10:11 | HOMEO2EVAL ---
Evaluation was performed at [facility] Home Oxygen Evaluation RC: Home Oxygen (O2) Evaluation Start: 01/21/23 09:20 Freq: ONCE Status: Active Protocol: RPE Activity Type Activity Date Activity User E-sign Co-sign Detail Recorded Client Recorded Date Recorded By Document 01/21/23 09:35 [email or web address] 01/21/23 10:10 SJB Document 01/21/23 09:40 [email or web address] 01/21/23 10:10 SJB Document 01/21/23 09:45 [email or web address] [email or web address] 01/21/23 10:10 SJB 01/21/23 01/21/23 01/21/23 09:35 09:40 09:45 Home O2 Evaluation [Oxygen] -Test Phase Resting Exercise Exercise -Oxygen Delivery Room Air Room Air Nasal Cannula -Oxygen Flow Rate (L/min) 1 [Pulse Oximetry] -Pulse Oximetry (90-100 %) 90 87 L 91 [Pulse Rate] -Pulse Rate (60-100 beats/min) 101 H 115 H 117 H [Evaluation] -Activity Tolerance Good Excellent -Rating of Perceived Dyspnea (PD) +2 Mild, Some +2 Mild, Some Difficulty, Difficulty, Noticeable to Noticeable to the Observer the Observer -Rate of Perceived Exertion (PE) 12 12 Query Text:Click the Protocol Button to View the RPE Scale [Exercise] -Ambulation Distance (feet) 250 250 -Ambulation Distance (meters) 76.19 76.19 [Comments] -Home Oxygen Evaluation Comments Will begin walk After pt walked Pt walked an on room air, approx 250 ft approx total of pushing on r/a her Sp02 500 ft, wheelchair. dropped to 87- finishing on 1 88%. Pt then lpm with Sp02s started on 1lpm staying at 90% . Pt using and above. Pt good PLB and exercised great encouraged to PLB throughout slow her walk. walk. When pt She walks very uses PLB and quickly and slows her walk, would benefit her Sp02 from slowing remains between down. 91-93% on 1 lpm. [Charges] -Treatment Charges O2 Evaluation - Outpatient
[2023-01-21 11:59] LABS: Glucose Point of Care 138 mg/dl (65-105)
--- NOTE | 2023-01-21 13:03 | PM.DS ---
DS: Admitting Diagnosis Discharge Date 01/21/2023 Admitting Diagnosis community-acquired pneumonia, acute exacerbation of COPD, generalized anxiety disorder, tobacco dependence, depression with anxiety, history prediabetes DS: Discharge Diagnosis Discharge Diagnosis (1) CAP (community acquired pneumonia): Qualifiers: Laterality: unspecified laterality Qualified Code(s): J18.9 - Pneumonia, unspecified organism Code(s): J18.9 - Pneumonia, unspecified organism Status: Acute (2) Acute exacerbation of chronic obstructive pulmonary disease: Code(s): J44.1 - Chronic obstructive pulmonary disease with (acute) exacerbation Status: Acute (3) DIAMOND (generalized anxiety disorder): Code(s): F41.1 - Generalized anxiety disorder Status: Acute (4) Tobacco dependence: Code(s): F17.200 - Nicotine dependence, unspecified, uncomplicated Status: Acute (5) Depression with anxiety: Code(s): F41.8 - Other specified anxiety disorders Status: Acute (6) History of prediabetes: Code(s): Z87.898 - Personal history of other specified conditions Status: Acute DS: Summary Hospital Course Hospital Course: 01/20:? This is a 62-year-old female patient with a history of COPD, tobacco abuse, hyperlipidemia, generalized anxiety disorder, GERD, allergies and asthma who sought care at the emergency department last night due to severe left flank pain as well as anxiety and dyspnea.? On arrival to the ER patient was found to be saturating in the 80s on room air.? Her pain was relieved after IV Toradol and has not returned.? CT scan of the abdomen and pelvis was unremarkable.? CT scan of the chest showed multifocal pneumonia overlying chronic bronchitis and emphysema.? Vital signs showed initial heart rate was 140s with tachypnea and hypoxia.? Labs are significant for elevated white blood cell count 16.4 which decreased to 12.7 this morning.? ABG shows compensated respiratory acidosis with a pH of 7.37 pCO2 50.2 PO2 of 61.4.? Supplemental oxygenation was started at 2 liters/minute and has been weaned to 1 liter/minute.? Patient reports that after her pain was controlled then breathing was able to relax.? Patient reports she also likely has ADHD that has not been treated so she is not used to just sitting around doing nothing.? The overnight nursing staff stated that patient probably need medication for anxiety.? I discussed this with the patient she states that she used to be on Wellbutrin and her primary switched her to escitalopram and she has been the on this for less than a month.? Patient states that she is always anxious and so was much of her family.? Patient that she stopped smoking over the started went to her siblings back to back.? Patient's daughter also called to make sure that we understood that patient minimizes her symptoms in order to say that everything is okay but she calls the family every day complaining breathing.? Daughter requested pulmonology referral.? Patient denied any chest pain nausea vomiting fever chills constipation diarrhea dysuria or any other concerning symptoms.? Once her left flank pain was under control she felt like she was near baseline health status. 01/21: Patient was weaned off oxygen but overnight she had desaturated into the 70s. For this reason we had respiratory therapy assess patient for home oxygen which showed that she needed 1 L per to maintain saturations 90-93%. Home oxygen was arranged. Patient stated that she slept well and felt great today. Hemoglobin A1c is 6.2. Will defer further treatment to primary care. Patient will go home on oral Augmentin and azithromycin for empiric coverage of pneumonia. Referral for pulmonology has been initiated and the [facility] office should contact patient once insurance approves. Patient was counseled on the importance of quitting smoking. Patient instructed to make primary care follow-up as well. T
--- NOTE | 2023-01-21 14:15 | PC.NURSE ---
Patient discharging home. IV site removed, tip intact. Dressing applied to site. All belongings gathered together and sent home with patient. All discharge instructions and educations reviewed with patient and daughter. All questions answered. Patient accompanied to front door via wheelchair by this nurse, left via private vehicle with daughter.
--- NOTE | 2023-01-24 10:45 | PC.NURSE ---
Discharge call placed, doing well, still using oxygen, has pulmonology appointment set up for Feb [address] Dumont to day for follow up, no questions, states had the best care
[2023-01-26 02:46] LABS: Legionella pneumophila Ag Ur Not Detected (Not Detected)
--- NOTE | 2023-01-28 09:22 | PC.NURSE ---
Blood,MRSA,SPutum cultures are negative. Urine Legionella Ag is negative. Elizabet Ramsey, GENERAL PASSENGER AGENT
== END 2023-01-21 14:15 | disposition home or self-care (01) ==
LOC: CHSED 21:00 → CHS2ND 23:18
PROVIDERS: Nurse Practitioner; Admitting Provider Internal Medicine; Emergency Provider Emergency Medicine; PCP Nurse Practitioner Family; Visit Provider Internal Medicine
DX: J18.9 Pneumonia, unspecified organism (principal); J44.0 Chronic obstructive pulmonary disease with (acute) lower respiratory infection; J44.1 Chronic obstructive pulmonary disease with (acute) exacerbation; D72.829 Elevated white blood cell count, unspecified; K21.9 Gastro-esophageal reflux disease without esophagitis; E78.5 Hyperlipidemia, unspecified; E66.3 Overweight; F41.1 Generalized anxiety disorder; F32.9 Major depressive disorder, single episode, unspecified; F17.210 Nicotine dependence, cigarettes, uncomplicated; F10.90 Alcohol use, unspecified, uncomplicated; Z68.31 Body mass index [BMI] 31.0-31.9, adult; Z79.51 Long term (current) use of inhaled steroids; Z79.891 Long term (current) use of opiate analgesic
CPT/HCPCS: 36415; 36600; 71250; 74176; 80053; 81001; 82805; 82948; 83036; 85025; 87040; 87070; 87081; 87205; 87449; 94618; 94640; 96361; 96365; 96367; 96372; 96374; 96375; A9270; G0378; G0379; J0456; J0696; J1650; J1885; J2930; J7030

== ENCOUNTER 2023-03-06 12:46 | Outpatient (CLI) | payer OTHER, SELFPAY ==
--- NOTE | ~2023-03-06 | CT_ITS ---
EXAMINATION: CT diagnostic chest wo con DATE: 03/06/2023 13:09 INDICATION: Pneumonia, unspecified organism TECHNIQUE: Computed tomography (CT) of the chest was performed without intravenous contrast. The dose -length product (DLP) was 292.13 mGy-cm. Automated exposure control and iterative reconstruction tech nique were employed. COMPARISON: 01/19/2023 FINDINGS: There is mild emphysema. Scarring is noted in the lung apices. Previously identified airspa ce opacities have resolved. No acute airspace opacities are identified. No pleural effusion or pneumo thorax. No pathologically enlarged thoracic lymph nodes are identified. The heart size is normal. The re is mild thoracic spondylosis. IMPRESSION: 1. Interval resolution of multifocal pneumonia. 2. Mild emphysema. Reviewed, dictated and finalized at location B. AR CARE TECHNICIAN
== END 2023-03-06 12:47 | disposition home or self-care (01) ==
LOC: ANHIMG 12:48
PROVIDERS: PCP Family Medicine; Visit Provider Internal Medicine Pulmonary Disease
DX: J18.9 Pneumonia, unspecified organism (principal); J44.89 Other specified chronic obstructive pulmonary disease; J43.9 Emphysema, unspecified
CPT/HCPCS: 71250

== ENCOUNTER 2023-03-21 12:43 | Outpatient (CLI) | payer OTHER, SELFPAY ==
[2023-03-21 14:44] LABS: Alveolar/Arterial O2 Gradient 43.6 mmHg; Base Excess ABG -0.6 mEq/l (+/-2.0); Carboxyhemoglobin 1.1 % THb (0-2.0); Fractional Inspired Oxygen 21 %; HCO3 ABG 23.8 mEq/l (22.0-26.0); Methemoglobin ABG 0.2 %THb (0-1.5); Oxygen Content ABG 19.5 %vol (16.0-22.0); Oxygen Saturation ABG 91.3 % (95.0-100.0); Oxyhemoglobin 90.9 % THb (90.0-100.0); PCO2 ABG 38.5 mmHg (35.0-45.0); PO2 FiO2 Ratio Arterial Blood 2.86 %; Reduced Hemoglobin 7.8 %THb (0-5.0); Site Drawn RIGHT RADIAL; Total Hemoglobin 15.3 g/dL (12.0-18.0); pH ABG 7.409 (7.350-7.450)
[2023-03-21 14:45] LABS: Modified Allen's Test Pass
[2023-03-21 14:46] LABS: Device ROOM AIR
--- NOTE | 2023-03-21 16:10 | P.PCNPFT_ITS ---
PFT Procedure Performed PFT Procedure Performed Spirometry with Pre/Post Bronchodilator Plethysmography (Lung Vol) Diffusing Cap (DLCO) Flow Vol Loop PFT Interpretation This is a pulmonary function test with pre and post-bronchodilator spirometry, plethysmography, diffusing capacity and rest room air arterial blood gas. The test was performed and results interpreted in accordance with the 2019 and 2005 ATS/ERS Task Force guidelines respectively using the Global Lung Function Initiative-2012 reference equations. Patient demonstrated good effort and cooperation. Reproducibility criteria were met. The quality of the pre bronchodilator spirometry maneuver was Grade A and post bronchodilator spirometry maneuver was Grade A. Of note, the patient had difficulty with plethysmography. Findings: Spirometry: There is decreased maximal expiratory airflow at all lung volumes with concave expiratory flow tracing. The contour the inspiratory flow tracing is normal. The pre bronchodilator FVC is 2.02 L, 77% predicted. The pre bronchodilator FEV1 is 0.65 L, 31% predicted. The pre bronchodilator FEV1: FVC ratio is 32%. The post bronchodilator FVC is 2.43 L, representing a 20% increase. The post bronchodilator FEV1 is 0.83 L, representing a 29% increase. The post bronchodilator FEV1: FVC ratio is 34%. Plethysmography: The total lung capacity is 5.09 L, 115% predicted. The functional residual capacity is 3.83 L, 154% predicted. The residual volume is 3.07 L, 165% predicted. The residual volume: Total lung capacity ratio is 60%. Diffusing capacity: The diffusing capacity unadjusted for hemoglobin and carboxyhemoglobin is 9.0, 46% predicted. The diffusing capacity adjusted for alveolar volume is 3.52, 77% predicted. The resting room air arterial blood gas with a pH of 7.41, PaCO2 39, PaO2 60. Impression: There is a veery severe obstructive abnormality. There is signifi cant improvement after inhaling a single dose of albuterol. The increase in residual volume to total lung volume ratio is consistent with hyperinflation from an obstructive abnormality. The diffusing capacity unadjusted for hemoglobin and carboxyhemoglobin is moderately decreased and normalizes when adjusted for alveolar volume. The resting room air arterial blood gas shows a normal pH and PaCO2 with the PaO2 below the lower limit of normal but not substantially low enough to qualify for home oxygen. There are no prior studies for comparison
== END 2023-03-21 12:44 | disposition home or self-care (01) ==
LOC: ANHPFT 12:44
PROVIDERS: PCP Family Medicine; Visit Provider Internal Medicine Pulmonary Disease
DX: J44.89 Other specified chronic obstructive pulmonary disease (principal)
CPT/HCPCS: 36600; 82375; 82805; 83050; 94060; 94726; 94729

== ENCOUNTER 2023-07-03 11:00 | Outpatient (RCR) | payer OTHER, SELFPAY | END 2023-07-03 14:17 | disposition home or self-care (01) | PROVIDERS: PCP Family Medicine; Visit Provider Internal Medicine Pulmonary Disease | DX: J44.9 Chronic obstructive pulmonary disease, unspecified (principal) | CPT/HCPCS: 94625 ==

== ENCOUNTER 2024-04-28 13:48 | Outpatient (CLI) | payer MEDICARE, SELFPAY ==
--- NOTE | ~2024-04-28 | MM_ITS ---
EXAMINATION: MM screening vel BI w taylor HISTORY: Screening TECHNIQUE: Craniocaudal and mediolateral oblique 3-D tomosynthesis images were obtained and synthetic 2-D images were generated. CAD analysis was submitted and interpreted. COMPARISON: Comparison to multiple prior studies sequentially, with oldest reviewed study dated 12/08. BREAST PARENCHYMAL COMPOSITION: Not dense: There are scattered areas of fibroglandular density. FINDINGS: There is no evidence of suspicious mass, calcification, or architectural distortion to sugg est malignancy in either breast. There has been no suspicious interval change. IMPRESSION: 1. No mammographic evidence of malignancy. 2. Recommend routine screening mammography in one year. BI-RADS Category 1: Negative Reviewed, dictated and finalized at location B. WAITER/WAITRESS BANQUET
--- OUTSIDE RECORDS SUMMARY | 2024-04-28 13:52 | XMS_ITS | Clinical Summary ---
Author Organization [facility] Social Pulse Address [address] [place] [address] Care Team Providers Care Industrial Maintenance Millwright Name Role Phone Zan Pinto MD Primary Care Provider [phone] Source Comments [facility],non-owned Affiliates and Associated Physician Practices is amultiple site organization consisting of ambulatory clinics and hospital sitesin [place], [place], [place] and [place]. This disclosure is being madepursuant to the Care Everywhere program and may not contain all information available regarding this patient. Last updated 17.[facility] Allergies No known active allergies Medications * Be aware that medications may not be up to date on this document. Alwaysverify current medications with the patient. Medication Sig Dispensed Refills Start Date End Date Status VENTOLIN HFA 108 (90 BASE) MCG/ACT inhaler 2 puffs four times daily as needed 04/09/2018 Active cyclobenzaprine (FLEXERIL) 10 MG tablet 1 three times daily as needed 03/09/2018 Active diclofenac potassium (CATAFLAM) 50 MG tablet 1 three times daily as needed 03/09/2018 Active fluticasone-salmete rol 232-14 MCG/ACT inhaler Four times daily as needed 04/27/2018 Active montelukast (SINGULAIR) 10 MG tablet 1 tab once daily 03/18/2018 Active buPROPion XL 24hr (WELLBUTRIN-XL) 150 MG tablet 1 tab daily 04/27/2018 Active triamcinolone acetonide (KENALOG) 0.1 % creamIndications:Ot her atopic dermatitis Apply to eczema on body and extremities twice daily. 90 days supply. 454 g 2 05/14/2018 Active hydrOXYzine hcl (ATARAX) 25 MG tabletIndications:O ther atopic dermatitis Take 1-2 tablets nightly, as needed. 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 14 tablet 06/10/2018 Active mometasone (ELOCON) 0.1 % ointmentIndications :Other atopic dermatitis Apply to rash BID. 30 days supply. 45 g 2 08/20/2018 Active Active Problems Problem Noted Date Diagnosed Date Other atopic dermatitis 05/14/2018 Family History Medical History Relation Name Comments Asthma Father Asthma Mother CVA Mother Asthma Sister CVA Sister Eczema Sister Cancer - Breast Neg Hx Cancer - Other Neg Hx Cancer - Skin, Melanoma Neg Hx Cancer - Skin, Non Melanoma Neg Hx Hemophilia Neg Hx Psoriasis Neg Hx Relation Name Status Comments Father Mother Sister Social History Tobacco Use Types Packs/Day Years Used Date Smoking Tobacco: Every Day Smokeless Tobacco: Never Alcohol Use Standard Drinks/Week Comments No 0 (1 standard drink = 0.6 oz pur e alcohol) Sex and Gender Information Value Date Recorded Sex Assigned at Not on file Gender Identity Not on file Sexual Orientation Not on file Last Filed Vital Signs Vital Sign Reading Time Taken Comments Blood Pressure 131/76 06/10/2018 2:09 PM CDT Pulse 95 06/10/2018 2:09 PM CDT Temperature 36.5 C (97.7 F) 06/10/2018 2:09 PM CDT Respiratory Rate 18 06/10/2018 2:09 PM CDT Oxygen Saturation 96% 06/10/2018 2:09 PM CDT Inhaled Oxygen Concentration - - Weight 65.8 kg (145 lb) 07/17/2018 12:51 PM CDT Height 152.4 cm (5') 07/17/2018 12:51 PM CDT Body Mass Index 28.32 07/17/2018 12:51 PM CDT Plan of Treatment Health Maintenance Due Date Last Done Comments BONE DENSITY TESTING 1960 COLOGUARD (AGES 45-75) - COL ON CA SCREENING 1958 COLON MONITORING 1958 COLONOSCOPY - COLON CA SCREENING 1958 CT COLONOGRAPHY - COLON CA SCREENING 1958 Colorectal Cancer Screening 1958 FIT - COLON CA SCREENING 1958 FLEX SIG - COLON CA SCREENING 1958 LIPID TESTING 1960 MAMMOGRAM 1958 PAP SMEAR 1958 HIV SCREENING 1973 HEPATITIS C SCREENING 07/05/1976 DTAP/TDAP/TD VACCINES (1 - Tdap) 1977 PNEUMOCOCCAL VACCINE 50+ (1 of 2 - PCV) 1977 ZOSTER VACCINE (1 of 2) 2008 SCREENING FOR DIABETES 06/10/2018 COVID-19 VACCINE (1 - 2023-2 5 season) 2023 INFLUENZA VACCINE (#1) 2023 DEPRESSION SCREENING 03/10/2024 Respiratory Syncytial Virus (RSV) Vaccine Pt: or over 60 yrs (1 - 1-dose 75+ series) 2033 HEPATITIS B VACCINE Aged Out No longe r eligible based on patient's age to complete this topic HIB VACCINE Aged Out No longer eligi ble based on patient's age to complete this topic HPV VACCINE Aged Out No longer eligi ble based on patient's age to complete this topic MENINGOCOCCAL (Group B) VACCINE Aged Out No longer eligible based on patient's age to complete this topic MENINGOCOCCAL VACCINE Aged Out No alida elvie eligible based on patient's age to complete this topic Care Teams Industrial Maintenance Millwright Relationship Specialty Start Date End Date Zan Pinto MD [address] [place] [address] PCP - General 10/31/17
--- OUTSIDE RECORDS SUMMARY | 2024-04-28 13:52 | XMS_ITS | Clinical Summary ---
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 Gender Identity Not on file Sexual Orientation Not on file Plan of Treatment Health Maintenance Due Date Last Done Comments Colorectal Cancer Screening Colonoscopy (10 Years) 1958 Hepatitis C 1976 DTaP, Tdap and Td Vaccines ( 1 - Tdap) 1977 Mammogram Screening 1998 Zoster Vaccines (1 of 2) 2008 Dexa Scan (General) 07/11/2023 Pneumococcal Vaccine: 65+ Ye ars (1 of 1 - PCV) 07/11/2023 COVID-19 Vaccine (2023-2 5 season) 2023 Influenza Adult (#1) 2023 RSV Immunization or 60+ Years (1 - 1-dose 75+ series) 2033 Meningococcal B Vaccine Aged Out No l onger eligible based on patient's age to complete this topic Meningococcal Vaccine Aged Out No alida elvie eligible based on patient's age to complete this topic Pneumococcal Vaccine: Pediat rics (0 to 5 Years) and At-Risk Patients (6 to 64 Years) Aged Out No longer eligible b ased on patient's age to complete this topic RSV Immunizations Under 20 Months Aged Out No longer eligible based on patient's age to complete this topic
--- OUTSIDE RECORDS SUMMARY | 2024-04-28 13:52 | XMS_ITS | Referral Summary ---
Author Organization [facility] [employer] Address [address] [place] [address] Care Team Providers Care Hybrid Corn Breeder Name Role Phone Zan Pinto MD Primary Care Provider [phone] Source Comments [employer],non-owned Affiliates and Associated Physician Practices is amultiple site organization consisting of ambulatory clinics and hospital sitesin [place], [place], [place] and [place]. This disclosure is being madepursuant to the Care Everywhere program and may not contain all information available regarding this patient. Last updated 17.[employer] Allergies No known active allergies Medications * [...] 05/14/2018 Active meloxicam (MOBIC) 15 MG tabletIndications:T cable rigger ring finger of left hand Take 1 tablet by mouth once daily In the morning with food. 14 tablet 06/10/2018 Active mometasone (ELOCON) 0.1 % ointmentIndications :Other atopic dermatitis Apply to rash BID. 30 days supply. 45 g 2 08/20/2018 Active Active Problems Problem Noted Date Diagnosed Date Other atopic dermatitis 05/14/2018 Social History Tobacco Use Types Packs/Day Years [...] 07/17/2018 12:51 PM CDT Plan of Treatment Not on file Care Teams Hybrid Corn Breeder Relationship Specialty Start Date End Date Zan Pinto MD [address] [place] [address] PCP - General 10/31/17
--- OUTSIDE RECORDS SUMMARY | 2024-04-28 13:52 | XMS_ITS | Patient Health Summary ---
Author Organization [facility] [employer] Address [address] [place] [address] Care Team Providers Care Framing Mill Supervisor Name Role Phone Zan Pinto MD Primary Care Provider [phone] Note from [facility],non-owned Affiliates and Associated Physician Practices is amultiple site organization consisting of ambulatory clinics and hospital sitesin [place], [place], [place] and [place]. This disclosure is being madepursuant to the Care Everywhere program and may not contain all information available regarding this patient. Last updated 17.[facility] Allergies No known active allergies Medications * Be aware that medications may not be up to date on this document. Alwaysverify current medications with the patient. * VENTOLIN HFA 108 (90 BASE) MCG/ACT inhaler(Started 04/09/2018) 2 puffs four times daily as needed * cyclobenzaprine (FLEXERIL) 10 MG tablet(Started 03/09/2018) 1 three times daily as needed * diclofenac potassium (CATAFLAM) 50 MG tablet(Started 03/09/2018) 1 three times daily as needed * fluticasone-salmeterol 232-14 MCG/ACT inhaler(Started 04/27/2018) Four times daily as needed * montelukast (SINGULAIR) 10 MG tablet(Started 03/18/2018) 1 tab once daily * buPROPion XL 24hr (WELLBUTRIN-XL) 150 MG tablet(Started 04/27/2018) 1 tab daily * triamcinolone acetonide (KENALOG) 0.1 % cream(Started 05/14/2018) Apply to eczema on body and extremities twice daily. 90 days supply. 2 refills remaining * hydrOXYzine hcl (ATARAX) 25 MG tablet(Started 05/14/2018) Take 1-2 tablets nightly, as needed. 11 refills remaining * meloxicam (MOBIC) 15 MG tablet(Started 06/10/2018) Take 1 tablet by mouth once daily In the morning with food. * mometasone (ELOCON) 0.1 % ointment(Started 08/20/2018) Apply to rash BID. 30 days supply. 2 refills remaining Active Problems Problem Noted Date Diagnosed Date [...] Mass Index 28.32 07/17/2018 12:51 PM CDT Procedures * IN INJ TENDON SHEATH/LIGAMENT/APONEUROSIS(Performed 07/01/2018) Performed for Trigger finger, left ring finger * XR HAND LEFT 3VW OR MORE(Performed 06/10/2018) Performed for Pain of hand, unspecified laterality Results * IN INJ TENDON SHEATH/LIGAMENT/APONEUROSIS (07/01/2018 4:20 PM CDT) Narrative Jami Thacker MD - 07/01/2018 4:20 PM CDT Jami Thacker MD 07/01/2018 4:20 PM Jesusita Gtz 1960 07/01/2018 Chief Complaint Patient presents with Pain Hand left fourth finger Pain Hand left 4th finger : Interim History: Continued L ring finger triggering Procedure: L ring finger stenosing flexor tenosynovitis at the A 1 merritt Corticosteroid Injection Provider : Jami Thacker MD Consent: Informed consent was obtained. Risks/benefits, alternatives, and complications of the procedure were discussed, including bleeding, infection, site reaction, skin changes,and possible flare. Allergies were reviewed. Questions were answered. Patient expressed understanding and gave verbal and written consent. Signed consent form scanned into the EHR. Description of Procedure: The patient was positioned, and the injection site was exposed and draped to best visualize anatomic landmarks as well as to preserve patient comfort. Anatomic landmarks were identified and marked. Next the skin overlying the area was prepped with chloroprep in the usual sterile fashion. Cold spray was applied for skin anesthesia. Using a 25g needle, I injected 0.5cc of1% Lidocaine without epinephrine and 0.5 cc of 40 mg/mL Triamcinolone Acetonide into the flexor tendon sheath and A1 merritt area using a distal to proximal approach . Free flow was obtained. The site was cleansed with alcohol and a sterile band-aid was placed over the injection site. Assessment and Plan: The patient was observed after the injection. The patient tolerated the procedure well. No complications. No blood loss. The patient was provided a post injection instruction sheet, and a 2 week follow up appointment was scheduled. Jami Conn MD, MS Board Certified, Physical Medicine and Rehabilitation Board Certified, Non-operative Sports Medicine Department of Orthopaedic Surgery [address], [address] Jami Thacker MD PROCEDURE/MINOR SURG ICAL ORDERABLES * XR HAND LEFT 3VW OR MORE (06/10/2018 2:01 PM CDT) Anatomical Region Laterality Modality Wrist / Hand Radiographic Antoinette ging 06/10/2018 3:07 PM CDT Impressions 06/10/2018 3:19 PM CDT IMPRESSION: No fracture or dislocation. Dictated by Mauricio Garcia MD (resident). I, Dr. KIP URRUTIA MD have personally reviewed and interpreted this examination/study. This report was electronically signed by KIP URRUTIA MD on 06/10/2018 3:19 PM . Narrative 06/10/2018 3:19 PM CDT EXAMINATION: Left hand, 3 views HISTORY: Hand pain COMPARISON: No prior study is available for comparison. FINDINGS: There is no acute fracture or dislocation. The joint spaces are normal. A small cyst or erosion is noted at the fifth proximal phalanx base. No soft tissue swelling is identified. Procedure Note Kip Urrutia MD - 06/10/2018 EXAMINATION: Left hand, 3 views HISTORY: Hand pain COMPARISON: No prior study is available for comparison. FINDINGS: There is no acute fracture or dislocation. The joint spaces are normal.A small cyst or erosion is noted at the fifth proximal phalanx base. No soft tissue swelling is identified. IMPRESSION: No fracture or dislocation. Dictated by Mauricio Garcia MD (resident). I, Dr. KIP URRUTIA MD have personally reviewed and interpreted this examination/study. This report was electronically signed by KIP URRUTIA MD on06/10/2018 3:19 PM . Jami Thacker MD DIAGNOSTIC IMAGING O RDERABLES Care Teams Framing Mill Supervisor Relationship Specialty Start Date End Date Zan Pinto MD [address] [place] [address] PCP - General 10/31/17
== END 2024-04-28 13:49 | disposition home or self-care (01) ==
LOC: CHSIMG 13:49
PROVIDERS: PCP Nurse Practitioner Family; Visit Provider Nurse Practitioner Family
DX: Z12.31 Encounter for screening mammogram for malignant neoplasm of breast (principal)
CPT/HCPCS: 77063; 77067

== ENCOUNTER 2024-12-21 14:31 | Outpatient (CLI) | payer MEDICARE, SELFPAY ==
--- NOTE | ~2024-12-21 | XR_ITS ---
EXAMINATION: XR shoulder RT min 2V, 12/21/2024 14:35 CDT HISTORY: M25.511 - Pain in right shoulder/after fall 1 month ago pain COMPARISON: No comparisons available. Findings: No acute fracture or malalignment. No significant degenerative changes. Soft tissues unremarkable. Impression: No acute fracture or malalignment. Reviewed, dictated and finalized at location P. Impression: No acute fracture or malalignment.
--- OUTSIDE RECORDS SUMMARY | 2024-12-21 16:29 | XMS_ITS | Clinical Summary ---
Author Organization [facility] [employer] Address [address] [place] [address] Care Team Providers Care Drawbridge Tender Name Role Phone Zan Pinto MD Primary Care Provider Source Comments [employer] [facility],non-owned Affiliates and Associated Physician Practices is amultiple site organization consisting of ambulatory clinics and hospital sitesin [place], [place], [place] and [place]. This disclosure is being madepursuant to the Care Everywhere program and may not contain all information available regarding this patient. Last updated 17.[employer] Allergies No known active allergies Medications * Be aware that medications may not be up to date on this document. Alwaysverify current medications with the patient. VENTOLIN HFA 108 (90 BASE) MCG/ACT inhaler 2 puffs four times daily as needed 9 Active cyclobenzaprine (FLEXERIL) 10 MG tablet 1 three times daily as needed 8 Active diclofenac potassium (CATAFLAM) 50 MG tablet 1 three times daily as needed 8 Active fluticasone-chela meterol 232-14 MCG/ACT inhaler Four times daily as needed 9 Active montelukast (SINGULAIR) 10 MG tablet 1 tab once daily 9 Active buPROPion XL 24hr (WELLBUTRIN-XL) 150 MG tablet 1 tab daily 9 Active triamcinolone acetonide (KENALOG) 0.1 % creamIndication s:Other atopic dermatitis Apply to eczema on body and extremities twice daily. 90 days supply. 454 g 2 9 Active hydrOXYzine hcl (ATARAX) 25 MG tabletIndicatio ns:Other atopic dermatitis Take 1-2 tablets nightly, as needed. 60 tablet 11 9 Active meloxicam (MOBIC) 15 MG tabletIndicatio ns:Trigger ring finger of left hand Take 1 tablet by mouth once daily In the morning with food. 14 tablet 9 Active mometasone (ELOCON) 0.1 % ointmentIndicat ions:Other atopic dermatitis Apply to rash BID. 30 days supply. 45 g 2 9 Active Active Problems Problem Noted Date Diagnosed [...] drink = 0.6 oz pur e alcohol) Comments Unknown Sex and Gender Information Value Date Recorded Sex Assigned at Not on file Legal Sex Female 1:05 PM CDT Gender Identity Not on file Sexual Orientation [...] SCREENING 1960 LIPID TESTING 1960 MAMMOGRAM 1960 HEPATITIS C SCREENING 07/05/1976 DTAP/TDAP/TD VACCINES (1 - Tdap) 1977 PNEUMOCOCCAL VACCINE 50+ (1 of 2 - PCV) 1977 ZOSTER VACCINE (1 of 2) 2008 SCREENING FOR DIABETES 06/10/2018 DEPRESSION SCREENING 03/10/2024 COVID-19 VACCINE (1 - 2023-2 5 season) 2024 INFLUENZA VACCINE (#1) 2024 Respiratory Syncytial Virus (RSV) Vaccine Pt: or [...] to complete this topic MENINGOCOCCAL (Group B) VACC INE SHARED DECISION-MAKING Aged Out No longer eligibl e based on patient's age to complete this topic MENINGOCOCCAL GROUPS A/C/Y/W VACCINE Aged Out No longer eligible b ased on patient's age to complete this topic Insurance [facility] Care Teams Drawbridge Tender Relationship Specialty Start Date End Date Zan Pinto MD [address] [place] [address] [facility] - General 10/31/17
== END 2024-12-21 14:32 | disposition home or self-care (01) ==
PROVIDERS: PCP Nurse Practitioner Family; Visit Provider Nurse Practitioner Family
DX: M25.511 Pain in right shoulder (principal)
CPT/HCPCS: 73030